=== PATIENT | female | born 1935 | race Caucasian/White ===

== ENCOUNTER 2018-03-27 19:05 | Inpatient (IN) | payer MEDICARE, MEDICAID ==
[~2018-03-27] VITALS: Ht 160 cm; Wt 62.1 kg
[~2018-03-27 19:05] MED LIST: CITA10TA8 PO; FOLI1TAB21 PO; HALO1TAB PO; LORA-447 PO; RISP0.2518 PO; RISP1TAB45 PO
--- NOTE | 2018-03-27 19:23 | ER.PDOC ---
General Chief Complaint: Requesting Medical Care Stated Complaint: MED CLEARANCE Time seen by MD: 19:18 Source: RN/MD Exam Limitations: clinical condition History of Present Illness Initial Comments Pt to be admitted to GP due to delusional activity, erratic behavior and aggressive toawrd others, non suicidal Timing/Duration: constant Severity: severe Associated Symptoms: Hostile, Confused Allergies: Coded Allergies: No Known Allergies (Unverified , 02/08/18) Home Meds Active Scripts Risperidone (RISPERDAL) 1 Mg Tablet, 1 MG PO BID for 30 Days, TABLET Prov:BRONWYN HARDY IV, MD 02/24/18 Lorazepam (ATIVAN) 0.5 Mg Tablet, 0.5 MG PO Q6HR PRN for AGITATION for 30 Days, TABLET Prov:BRONWYN HARDY IV, MD 02/24/18 Haloperidol (HALOPERIDOL) 1 Mg Tablet, 2 MG PO Q6H PRN for AGITATION for 30 Days , TABLET Prov:BRONWYN HARDY IV, MD 02/24/18 Folic Acid (FOLIC ACID) 1 Mg Tablet, 1 MG PO DAILY for 30 Days, #30 TABLET Prov:RIANA JEFFERY MD 02/20/18 Citalopram Hydrobromide (CELEXA) 10 Mg Tablet, 10 MG PO DAILY for 30 Days, #30 TABLET Prov:RIANA JEFFERY MD 02/20/18 Past Medical History Surgical History: cancer surgery, cholecystectomy Social History Drug Use: none Review of Systems Constitutional: no symptoms reported EENTM: no symptoms reported Respiratory: no symptoms reported Cardiovascular: no symptoms reported Gastrointestinal: no symptoms reported Genitourinary: no symptoms reported Musculoskeletal: no symptoms reported Skin: no symptoms reported Psychiatric/Neurological: see HPI Physical Exam General Appearance: No acute distress, Alert EENT: No nystagmus, PERRLA, EOM's intact, NML ENT inspection, Pharynx nml, NML gag reflex Neck: Non-Tender, Full Range of Motion, Supple, Normal Inspection Respiratory: chest non-tender, lungs clear, normal breath sounds, no respiratory distress, no accessory muscle use Cardiovascular: Normal Peripheral Pulses, Regular Rate, Rhythm, No Edema, No Gallop, No JVD, No Murmur Gastrointestinal: Normal Bowel Sounds, No Organomegaly, No Pulsatile Mass, Non Tender, Soft Extremities: Edema (3/6, bilateral pitting) Neurological/Psychiatric: podiatric technician II-XII NML as Tested, Disoriented x 3 Appearance/Memory/Insight: No Memory Impairment, Disheveled, Impaired Insight, Impaired Recent Memory, Impaired Remote Memory Behavior/Eye Contact/Speech: Refused to Answer, Threatening Eye Contact Thoughts/Hallucinations: No Apparent Hallucination Skin: Normal Color, Warm/Dry Results/Orders Results/Orders Laboratory Tests Test 03/27/18 19:22 03/27/18 19:30 White Blood Count 6.1 10^3/uL (4.5-11.0) Red Blood Count 4.12 10^6/uL (4.00-5.20) Hemoglobin 13.2 g/dL (12.0-15.0) Hematocrit 40.5 % (36.0-46.0) Mean Corpuscular Volume 98.3 fL (78-100) Mean Corpuscular Hemoglobin 32.0 pg (26-34) Mean Corpuscular Hemoglobin Concent 32.6 g/dL (33-37) Red Cell Distribution Width 14.0 % (11.5-14.5) Platelet Count 231 10^3/uL (150-400) Mean Platelet Volume 9.3 fL (7.8-11.0) Neutrophils (%) (Auto) 70.6 % (41.0-85.0) Lymphocytes (%) (Auto) 20.8 % (24.0-44.0) Monocytes (%) (Auto) 7.3 % (5.0-12.0) Neutrophils # (Auto) 4.3 10^3/uL (1.8-7.7) Lymphocytes # (Auto) 1.3 10^3/uL (1.0-4.8) Monocytes # (Auto) 0.5 10^3/uL (0.3-0.8) Absolute Immature Granulocyte (auto 0.01 10^3 u/L (0-2) Eosinophils % 0.8 % (0.0-5.0) Basophils % 0.3 % (0.0-0.2) Basophils # 0.0 10^3/uL (0.0-0.1) Eosinophil Count 0.1 10^3/uL (0.0-0.2) Prothrombin Time 10.0 SEC (9.8-11.9) Prothrombin Time INR (Non-Therap) 1.0 Activated Partial Thromboplast Time 23.1 SEC (24.67-30.72) Sodium Level 142 mmol/L (132-145) Potassium Level 3.4 mmol/L (3.6-5.2) Chloride Level 104.0 mmol/L (96-109) Carbon Dioxide Level 30.7 mmol/L (20.0-32) Anion Gap 10.7 Blood Urea Nitrogen 12 mg/dL (7-18) Creatinine 0.83 mg/dL (0.59-1.40) Estimated GFR () 79.4 (>/=60) BUN/Creatinine Ratio 14.0 Glucose Level 179 mg/dL (70-110) Calcium Level 8.5 mg/dL (8.4-10.5) Total Bilirubin 0.3 mg/dL (0.2-1.0) Aspartate Amino Transf (AST/SGOT) 16 U/L (0-35) Alanine Aminotransferase (ALT/SGPT) 24 U/L (12-78) Alkaline Phosphatase 109 U/L (50-136) Total Creatine Kinase 102 U/L (26-192) Creatine Kinase MB 0.7 ng/mL (0.5-3.6) Troponin I < 0.02 ng/mL (0.00-0.05) C-Reactive Protein 0.75 mg/dL (0.00-5.00) Pro-B-Type Natriuretic Peptide 228 pg/mL (0-450) Total Protein 7.2 g/dL (6.4-8.2) Albumin 3.3 g/dL (3.4-5.0) Globulin 3.9 Vitamin B12 Level 242 pg/mL (193-986) Folate 38.4 ng/mL (8.6-58.9) Thyroid Stimulating Hormone (TSH) 1.048 mIU/mL (0.358-3.740) Valproic Acid (Depakene) Level < 3 ug/mL (50-100) [place] Level < 0.20 mmol/L (0.6-1.2) Percent Immature Gran (Cell Imm) 0.20 % (0.00-0.50) Urine Collection Type VOID Urine Color STRAW (YELLOW) Urine Appearance CLEAR (CLEAR) Urine Bilirubin NEGATIVE MG/DL (NEGATIVE) Urine Ketones NEGATIVE (NEGATIVE) Urine Specific [place] 1.010 (1.005-1.035) Urine pH 6 (5.0-6.0) Urine Protein NEGATIVE (NEGATIVE) Urine Urobilinogen NORMAL (NEGATIVE) Urine Nitrate NEGATIVE (NEGATIVE) Urine Leukocyte Esterase 25 /uL TRACE (NEGATIVE) Urine Blood NEGATIVE (NEGATIVE) Urine RBC 0-2 RBC/HPF (NONE SEEN) Urine WBC 0-2 WBC/HPF (0-2) Urine Squamous Epithelial Cells FEW #/HPF (FEW) Urine Bacteria NONE SEEN (NONE SEEN) Urine Glucose NORMAL (NEGATIVE) Urine Opiates, Qualitative NEGATIVE ng/mL (CUT-OFF:300) Urine Methadone, Qualitative NEGATIVE ng/mL (CUT-OFF:300) Urine Amphetamine Qualitative NEGATIVE ng/mL (CUTOFF:1000) Urine Barbiturates, Qualitative NEGATIVE ng/mL (CUT-OFF:200) Urine Phencyclidine Screen NEGATIVE ng/mL (CUT-OFF:25) Urine MDMA (Ecstasy), Qualitative NEGATIVE ng/mL (CUT-OFF:300) Urine Benzodiazepines Screen NEGATIVE ng/mL (CUT-OFF:200) Urine Cocaine Qualitative NEGATIVE ng/mL (CUT-OFF:300) Ur Tetrahydrocannabinol (THC) Scrn NEGATIVE ng/mL (CUT-OFF:50) Departure Time of Disposition: 20:25 Disposition: 65 XFER TO PSYCH HOSP/UNIT Impression: Primary Impression: Delusional disorder Additional Impressions: Dementia Major depress dis, severe Condition: Stable Referrals: WILBER GRAVES (PCP) PRIMARY CARE PROVIDER Duration or Time Spent with Pa: COOKIE RAMSEY MD Mar 27, 2018 19:23
[2018-03-27 19:28] LABS: BASOPHIL % 0.3 % (0.0-0.2); EOSINOPHIL # 0.1 10^3/uL (0.0-0.2); EOSINOPHIL % 0.8 % (0.0-5.0); HEMOGLOBIN 13.2 g/dL (12.0-15.0); LYMPHOCYTES # 1.3 10^3/uL (1.0-4.8); LYMPHOCYTES % 20.8 % (24.0-44.0); MEAN CELL HGB CONCENTRATION 32.6 g/dL (33-37); MEAN CORP VOLUME 98.3 fL (78-100); MEAN PLATELET VOLUME 9.3 fL (7.8-11.0); MONOCYTES # 0.5 10^3/uL (0.3-0.8); MONOCYTES % 7.3 % (5.0-12.0); NEUTROPHIL # 4.3 10^3/uL (1.8-7.7); NEUTROPHILS % 70.6 % (41.0-85.0); WHITE BLOOD CELL 6.1 10^3/uL (4.5-11.0)
--- NOTE | 2018-03-27 19:29 | NUR ---
SUICIDAL PATIENT HAS VOICED SUICIDAL THOUGHTS TO THIS NURSE, PERSON THAT BROUGHT PATIENT STATES SHE HAS VOICED ALL THROUGHOUT THE DAY SHE DOESN'T WANT TO LIVE ANYMORE, PATIENT STATED "I WANT TO KILL MYSELF"
--- NOTE | 2018-03-27 19:31 | NUR ---
URINE COLLECTED AND TAKEN TO LAB
[2018-03-27 19:35] LABS: BILIRUBIN,URINE NEGATIVE (NEGATIVE); UROBILINOGEN,URINE NORMAL (NEGATIVE)
--- NOTE | 2018-03-27 19:38 | DIREP ---
PROCEDURE:CHEST 1 VIEW COMPARISON:[facility], CR, XRAY CHEST SINGLE VW, 02/08/2018, 08:53 PM. INDICATIONS:clearance FINDINGS: LUNGS/PLEURA:Mild interstitial thickening in both lung bases without focal consolidation. VASCULATURE:Normal. Unremarkable pulmonary vasculature. CARDIAC:Borderline enlarged cardiac silhouette. Limited by portable technique and patient rotation. MEDIASTINUM:Vascular calcifications. BONES:Osteopenia. OTHER:Negative. CONCLUSION:Mild interstitial thickening in both lung bases, differential includes pneumonia, edema, atelectasis or chronic change. Borderline cardiomegaly. Dictated by: Rudy Carvajal M.D. on 03/27/2018 at 07:36 PM
[2018-03-27 19:42] LABS: APPEARANCE,URINE CLEAR (CLEAR); UA COLOR STRAW (YELLOW)
[2018-03-27 20:24] LABS: ALANINE AMINOTRANSFERASE(ML) 24 U/L (12-78); ALKALINE PHOSPHATASE 109 U/L (50-136); ASPARTATE AMINO TRANSFERASE 16 U/L (0-35); CALCIUM 8.5 mg/dL (8.4-10.5); CARBON DIOXIDE 30.7 mmol/L (20.0-32); GLUCOSE 179 mg/dL (70-110)
[2018-03-27 20:27] VITALS: BP 129/69
[2018-03-27 21:00] VITALS: BP 132/67
--- NOTE | 2018-03-27 21:00 | NUR ---
Admit Patient arrived per wheelchair to [facility] at 2049 with Katherine MANRIQUE RN and [employer] operator. Patient alert but unable to tell RN name, , Place, or date. Pt rambling but unable to follow her conversation. Patient involuntary with court documents from [facility]. Dr Carter notified of patient arrival. Dr Michelle had called and is aware of pt arrival.
--- NOTE | 2018-03-27 23:26 | PCM.EKG ---
[facility] Test Date: 2018-03-27 Test Time: 19:44:27 Pat Name: GILBERT Mc Department: Room: Gender: F Linotype Operator: LOGAN : 1935 Requested By: COOKIE LE Order Number: [id number] Reading MD: Cookie Le Measurements Intervals [place] Rate: 80 P: 57 [place]: 144 QRS: -67 QRSD: 114 T: 53 QT: 410 QTc: 472 Interpretive Statements Normal sinus rhythm Left anterior fascicular block Abnormal ECG Compared to ECG 02/08/2018 21:00:57 Left ventricular hypertrophy no longer present Early repolarization no longer present Electronically Signed On 03-29-2018 8:07:03 CDT by Cookie Le Please click the below link to view image of tracing.
[2018-03-28] MEDS ORDERED: HALDOL PO PRN (02:00)
--- NOTE | 2018-03-28 03:57 | NUR ---
Nursing note Patient ambulatory to nurses desk unassisted. Patient was assisted back to her room to bathroom then assisted back in to bed. bed alarm placed. Patient has not displayed any behaviors. To observe.
[2018-03-28 07:41] VITALS: BP 110/55
[2018-03-28] MEDS ORDERED: CELEXA PO SCH (09:00)
[2018-03-28] MEDS: RISPERDAL PO SCH ×2 (10:15→20:43)
[2018-03-28] MEDS: FOLIC ACID PO SCH (10:15)
--- NOTE | 2018-03-28 12:03 | HPH ---
ADMIT DATE: 03/28/2018 REFERRING PHYSICIAN: Dr. Michelle from Psychiatry. REASON FOR CONSULTATION: Medical management of multiple medical problems. HISTORY OF PRESENT ILLNESS: The patient is an 82-year-old woman who was admitted to the Geropsych Unit for worsening depression. She has a past medical history significant for dementia and depression. She also has history of breast cancer. She was worked up in the Emergency Room and medically cleared for inpatient psychiatric care. Her only home medication other than psychiatric medication is folic acid. She is in a wheelchair. She does have some lower extremity trace edema. Her functional status is questionable. She denies any chest pain. No other acute changes. 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 PAST SURGICAL HISTORY: She has had left mastectomy and cholecystectomy. ALLERGIES: NO KNOWN DRUG ALLERGIES. HOME MEDICATIONS: Her reported list includes folic acid 1 mg daily, Celexa 10 mg daily, Haldol 2 mg as needed for agitation, lorazepam 0.5 mg as needed for agitation, Risperdal 1 mg b.i.d. SOCIAL HISTORY: Resident of a correction. No alcohol, tobacco or illicit drug use history known. FAMILY HISTORY: Negative for early coronary artery disease or diabetes. REVIEW OF SYSTEMS: CARDIAC: She denies chest pain or shortness of breath. PULMONARY: No cough, sputum production or pleuritic chest pain. GASTROINTESTINAL: No nausea, vomiting, diarrhea or constipation. All else negative in 10 point review of system except as in HPI. PHYSICAL EXAMINATION: INITIAL VITAL SIGNS: Upon arrival to the Emergency Room, height 160 cm, weight 63.5 kilograms, temperature 98.5, pulse 87, respiratory rate is 18, O2 saturation 96% on room air, blood pressure is 129/69. GENERAL: She is alert, in no acute distress at time of exam, flat affect. HEENT: Pupils equal, round, reactive to light. Sclerae are anicteric. Oropharynx is clear. Mucous membranes are moist. NECK: Supple, no lymphadenopathy. CARDIOVASCULAR: At time of exam was regular rate and rhythm with a faint systolic murmur at right upper sternal border. LUNGS: Clear bilaterally. No wheezing. ABDOMEN: Soft. Bowel sounds present, nontender to palpation. EXTREMITIES: No cyanosis, clubbing. She has trace lower extremity edema. NEUROLOGIC: She does have some very mild cogwheel rigidity in the upper extremities on exam and bradykinesia by report. LABORATORY DATA: CBC: White count 6.1, hemoglobin 13.2 and platelets 231. Differential: 70% neutrophils, 21% lymphocytes, 7% monocytes. Sodium 142, potassium 3.4, chloride 104, CO2 is 31, BUN 12, creatinine 0.8, glucose is 179, calcium is 8.5, total bilirubin 0.3, AST 16, ALT 24, alkaline phosphatase is 109, total CK is 102, CK-MB is 0.7, troponin I is less than 0.02, C-reactive protein 0.75, ProBNP of 228, total protein 7.2, albumin 3.3, B12 242. Folate is 38.4. TSH 1.048. UA, pH is 6.0, specific gravity is 1.010, all else is essentially negative. Drug screen is negative. IMAGING STUDIES: Chest x-ray performed in the Emergency Room reveals some mild chronic changes. ASSESSMENT AND PLAN: The patient is an 82-year-old woman here with probably some mild interstitial lung disease, congestive heart failure, diastolic dysfunction, probably early Parkinson's disease with depression and dementia. 1. We will continue folic acid. 2. We will follow clinically. She does have some trace edema, probably some early diastolic heart failure. She also has exam consistent with early Parkinson disease with cogwheel rigidity and bradykinesia, but at this point, does not appear to need any kind of movement disorder medications like Sinemet. Thank you for this consult. We will follow with you. Tenzin Carter MD DR: UBALDO/manjit JOB# [id number]
--- NOTE | 2018-03-28 12:27 | NUR ---
OT EVALUATION OT evaluation completed on paper by Marilia Samaniego Supervising OTR. Documentation copied from paper evaluation into computer per OTR request. Signed: 03/28/18 at 1231 by GUILLERMO Mcguire OT Addendum: 03/28/18 at 1232 by GUILLERMO Mcguire OT Amended: Links added.
--- NOTE | 2018-03-28 12:38 | NUR ---
OT POC POC completed by supervising SHAUNA Samaniego on paper. Information copied from paper into computer per S SHAUNA Samaniego request. Signed: 03/28/18 at 1239 by GUILLERMO Mcguire OT Addendum: 03/28/18 at 1239 by GUILLERMO Mcguire OT Amended: Links added.
--- NOTE | 2018-03-28 15:15 | NUR ---
GMAS SCORE 0: PT IS UNABLE TO COGNITIVELY ABLE TO PARTICIPATE IN EXAM AT THIS TIME.
--- NOTE | 2018-03-28 15:24 | NUR ---
MMSE SCORE 0. PT IS NOT ABLE TO COGNITIVELY PARTICIPATE IN EXAM. PT IS ONLY ORIENTED TO SELF. Addendum: 03/28/18 at 1524 by Krystle HOLCOMB CM Amended: Links added.
--- NOTE | 2018-03-28 15:50 | NUR ---
VSEE Pt was seen by Dr. Michelle via telemed. Received orders to increase scheduled Celexa, see EMAR.
[2018-03-28] MEDS: ATIVAN PO PRN (16:44)
--- NOTE | 2018-03-28 16:45 | NUR ---
BEHAVIOR NOTE: Patient is anxious, tearful and asking "what do I do". She is unable to be redirected. Ativan 0.5 mg po PRN given
--- NOTE | 2018-03-28 17:09 | NUR ---
PIRP P: Sexually inappropriate, confused I: q15 min monitoring, provide safe and supportive environment, give clear and simple instructions, redirect with verbalization, provide task-oriented activities, provide 1:1 to encourage expression of feelings, set clear and appropriate boundaries, provide positive feedback on appropriate behaviors, teach relaxation techniques, educate regarding involuntary admission R: Pt has had flat, withdrawn affect majority of shift, tearful @ times. Unable to answer assessment questions appropriately, exhibits word salad. When asked if depressed and anxious, reports "yes," unable to elaborate. When tearful, states, "I wanna go home." Pt requires assistance with ADLs and feedings. Unsteady, weak gait. Difficulty following simple commands. P: Pt was seen by Dr. Michelle, Celexa increased.
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
--- NOTE | 2018-03-28 17:18 | NUR ---
BIOPSYCHOSOCIAL: SS WAS UNABLE TO COMPLETE BIOPSYCHOSOCIAL DUE TO PT'S COGNITION. Addendum: 03/28/18 at 1719 by Krystle HOLCOMB CM Amended: Links added.
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
--- NOTE | 2018-03-29 05:36 | NUR ---
PIRP P Dementia with behavioral disturbance, Sexually inappropriate behavior I Sleep for 8 hours encouraged. Threatening and assaultive behavior to be discouraged. Medications to be given as ordered by . Monitor patient every 15 minutes for safety. Observe patient for inappropriate behaviors or statements. R Patient has slept well tonight and has only been up to bathroom to void. Patient has not displayed any threatening or assaultive behavior. Nor has patient made any inappropriate statements that could be understood. Patient has taken medications as ordered. Patient has been monitored every 15 minutes for her safety and for the safety of those around her. Patient has not displayed any inappropriate behaviors or statements. P Continue plan of care
[2018-03-29 08:58] VITALS: BP 110/66
[2018-03-29] MEDS: CELEXA PO SCH (09:02)
[2018-03-29] MEDS: RISPERDAL PO SCH ×2 (09:02→20:32)
[2018-03-29] MEDS: FOLIC ACID PO SCH (09:02)
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
--- NOTE | 2018-03-29 17:54 | NUR ---
PIRP: P: Altered thought process. I: Provide medications as ordered by physician. Encourage attendance and participation of all groups. Provide groups that require focus and concentration. Assist patient in differentiating between internal and external reality. R: Patient has taken all medications and has remained calm and cooperative/pleasant until approx 1800 she was restless wandering and anxious. Ativan 0.5 mg po PRN given. P: Continue current plan of care.
[2018-03-29] MEDS: ATIVAN PO PRN (17:57)
--- NOTE | 2018-03-29 17:57 | NUR ---
anxiety pt has become anxious and is exit seeking. unable to redirect. ativan administered per prn order
[2018-03-29 19:25] VITALS: BP 138/72
--- NOTE | 2018-03-30 02:07 | NUR ---
PIRP- P- ALTERED THOUGHT PROCESS,SEXUAL INAPPROPRIATE I-PROVIDE MEDICATION ORDERED,Q 15 MIN. MONITORING,PROVIDE SAFE AND SUPPORTIVE ENVIRONMENT. R-PT. WAS ORIENTED TO NAME NOT MONTH OR YEAR. WAS UNABLE TO RATE DEPRESSION AND ANXIETY. ATTENDED GROUP BUT DID NOT PARTICIPATE IN ACTIVITIES. ATE SNACKS. MEDICATION EDUCATION PROVIDED BUT PT. COULD NOT EXPRESS UNDERSTANDING OR RECALL AFTERWARD. TOOK MEDICATION ORDERED. RESTLESS AT TIMES. WAS ASSISTED WITH HS ADLS AND TO BED. PT. DID NOT EXHIBIT SEXUALLY INAPPROPRIATE BEHAVIORS TONIGHT. P-WILL CONTINUE WITH CURRENT TX. PLAN.
[2018-03-30 07:42] VITALS: BP 129/76
[2018-03-30] MEDS: FOLIC ACID PO SCH (09:42)
[2018-03-30] MEDS: RISPERDAL PO SCH ×2 (09:42→20:53)
[2018-03-30] MEDS: CELEXA PO SCH (09:42)
--- NOTE | 2018-03-30 18:19 | NUR ---
PIRP: P: DEMENTIA WITH BEHAVIORAL DISTURBANCE,SEXUALLY INAPPROPRIATE I: MONITOR Q 15 MINUTES FOR SAFETY, PROVIDE SAFE AND SUPPORTIVE ENVIRONMENT, GIVE MEDICATIONS ORDERED BY PHYSICIAN PROVIDE SAFE AND SUPPORTIVE ENVIRONMENT R: PT. IS CHECKED BY STAFF Q 15 MINUTES, PT. TAKES MEDICATIONS ORDERED BY PHYSICIAN. PT. HAS A SAFE AND SUPPORTIVE ENVIRONMENT. PT. IS ORIENTED X 1. KNOWS HER NAME, . PT. HAS BEEN CALM AND COOPERATIVE TODAY. PT. HAS NOT BEEN SEXUALLY INAPPROPRIATE. P: CONTINUE CURRENT TX PLAN
[2018-03-30 19:30] VITALS: BP 135/65
--- NOTE | 2018-03-31 06:12 | NUR ---
pirp P- ALTERED THOUGHT PROCESS AND SEXUAL INAPPROPRIATE I- Q 15 MIN. MONITORING,PROVIDE MEDICATION ORDERED,PROVIDE SAFE AND SUPPORTIVE ENVIRONMENT. R-PT. WAS ORIENTED TO NAME NOT MONTH OR YEAR. WAS UNABLE TO RATE DEPRESSION AND ANXIETY. TOOK MEDICATION ORDERED.WANDERED AT TIMES. EASILY REDIRECTED. PT. HAS RESTED IN BED WITH EYES CLOSED FOR ONE HOUR THIS SHIFT. ATTEMPTED TO GO INTO PEERS' ROOMS AT TIMES BUT WAS REDIRECTED. P- WILL CONTINUE WITH CURRENT TX. PLAN.
[2018-03-31 08:13] VITALS: BP 120/64
[2018-03-31] MEDS: RISPERDAL PO SCH ×2 (11:26→21:05)
[2018-03-31] MEDS: CELEXA PO SCH (11:26)
[2018-03-31] MEDS: FOLIC ACID PO SCH (11:26)
--- NOTE | 2018-03-31 12:40 | PRM.PN ---
Mood: UP AND DOWN, MOOD SWINGS, PACES A LOT Sleep: SLEPT 1 HOUR LAST NIGHT, SLEEPING POORLY Appetite: EATS 90-100% OF HER MEALS Suidical thoughts: NONE REPORTED Homicidal thoughts: NONE REPORTED Recent stressors: STRESS OF MENTAL ILLNESS, POOR MEMORY Family support: SOME FAMILY SUPPORT Aggressive Behavior: SEXUALLY INAPPROPRIATE BEHAVIOR, POOR PERSONAL SPACE BOUNDARIES Ability to Perform ADL'sc: NEEDS ASSISTANCE AND PROMPTING Psychotic sympstoms: DELUSIONAL THINKING, PARANOIA, ODD THINKING Manic Symptoms: MOOD SWINGS Living situation: LIVES AT [facility] Illicit Drug usec: NONE REPORTED Alcoholo use: NONE REPORTED Tobacco use: NONE REPORTED Anxity Symptoms: MODERATE ANXIETY LEVEL Anger/Irritablility: PROBLEMS WITH ANGER AND IRRITABILITY Muscle Strength & Tone: WNL Gait & Station: Ataxic Appearance: Well groomed/hygience, Casual attire, Normal weight, Appears age stated Attitude & Behaviour: Uncooperative, Poor eye contact, Psychomotor agitation Mood & Affect: Euthymic/appr/congruent, Iabile, Angry, Depressed Orientation: Disoriented to place, Disoriented to time, Disoriented to situation Attention/Concentration: Poor attention, Poor concentration Speech: Impaired Judgement/Insight: Poor judgement, Poor insight Thought Process: Loose, Tangential Language: Mosotho Thought content/Abnormal/Psych: Delusions Fund of Knowledge: Other Associations: JIMMY Memory (recent and remote): Recent memory repaired, Remote memory repaired Constitutional: Insomnia Neurological: None Psychiatric: Depressed, Anxious, Psychosis Media I: DELUSIONAL DISORDER; PSYCHOSIS; ANXIETY, DEPRESSION, DEMENTIA Media II: DEFERRED Media III: REFER TO PMH/MEDICAL CHART Media IV: STRESS OF MENTAL ILLNESS Media V: GAF=25 Assessment/Plan Assessment/Plan Assessment/Plan Vital Signs Date Time Temp Pulse Resp B/P (MAP) Pulse Ox O2 Delivery O2 Flow Rate FiO2 03/31/18 08:13 98.3 75 18 120/64 (82) 95 Room Air Allergies Coded Allergies No Known Allergies (Unverified02/08/18) I & O 02/09/18 01:59 Thru 03/31/18 11:27 Intake Total 4857 ml Balance 4857 ml Current Medications Medications (Trade) Dose Ordered Sig/Erinn Route PRN Reason Start Time Stop Time Status Last Admin Dose Admin Folic Acid (Folic Acid) 1 mg DAILY PO 03/28/18 09:00 04/27/18 08:59 03/31/18 11:26 Citalopram Hydrobromide (Celexa) 10 mg DAILY PO 03/28/18 09:00 03/28/18 16:26 DC 03/28/18 10:15 Haloperidol (Haldol) 2 mg Q6H PRN PO AGITATION 03/28/18 02:00 04/27/18 01:59 Lorazepam (Ativan) 0.5 mg Q6HR PRN PO AGITATION 03/28/18 02:00 04/27/18 01:59 03/29/18 17:57 Risperidone (Risperdal) 1 mg BID PO 03/28/18 09:00 04/27/18 08:59 03/31/18 11:26 Citalopram Hydrobromide (Celexa) 15 mg DAILY PO 03/29/18 09:00 04/28/18 08:59 03/31/18 11:26 THE PATIENT WAS SEEN BY DR. HARDY VIA TELEMEDICINE EQUIPMENT (VSEE) ALONG WITH THE TREATMENT TEAM. THE PATIENT IS A POOR HISTORIAN. SHE IS NOT ABLE TO ANSWER QUESTIONS VERY WELL. THE PATIENT HAS LOOSE ASSOCIATIONS. THE PATIENT HAS A DISORGANIZED THOUGHT PROCESS. THE PATIENT DENIES SI OR ARELY. THE PATIENT REPORTS HER MOOD IS "ALRIGHT." THE PATIENT HAS NOT SHOWN SEXUALLY INAPPROPRIATE BEHAVIOR SINCE BEING ADMITTED. THE PATIENT HAS NOT REQUIRED PRN MEDICATION THIS WEEKEND. SHE IS SLEEPING POORLY. SHE SLEPT ONE HOUR LAST NIGHT. THE PATIENT HAS BEEN EATING WELL PER STAFF. THE PATIENT PACES THE HALLWAYS. SHE HAS BEEN RE- DIRECTABLE PER STAFF. THE PATIENT HAS BEEN TAKING HER MEDICATIONS. SHE IS NOT HAVING ANY PHYSICAL PAIN TODAY. ASSESSMENT: DELUSIONAL DISORDER; PSYCHOSIS; MAJOR DEPRESSIVE DISORDER, GENERALIZED ANXIETY DISORDER, DEMENTIA WITH BEHAVIOR PROBLEMS PLAN: 1) CONTINUE BEHAVIORAL HEALTH MANAGEMENT AT THE [facility]. 2) START TRAZODONE 50MG PO QHS FOR INSOMNIA. CONTINUE OTHER MEDICATIONS AT CURRENT DOSES. STAFF AGREEABLE WITH THE PLAN. THE PATIENT DENIES SI OR HI. SAFETY PLANS WERE DISCUSS WITH THE PATIENT. SUPPORTIVE THERAPY GIVEN. Problems: (1) Dementia Status: Acute ICD Code: F03.90 - Unspecified dementia without behavioral disturbance SNOMED: 77485922 (2) Delusional disorder Status: Acute ICD Code: F22 - Delusional disorders SNOMED: 41958840 (3) Dementia with behavioral disturbance ICD Code: F03.91 - Unspecified dementia with behavioral disturbance SNOMED: 8723813095210 Patient History: Chronic obstructive pulmonary disease G8 SISTER Unknown G8 BROTHER BRONWYN HARDY IV, MD Mar 31, 2018 12:40
--- NOTE | 2018-03-31 15:41 | NUR ---
PIRP: P: ALEED THOUGHT PROCESS I: Q 15 MINUTE CHECKS, PROVIDE MEDS DRYanira ORDERED, PROVIDER SAFE AND SUPPORTIVE ENVIRONMENT. R: PT. HAS Q 15 MINUTE CHECKS BY STAFF. PT. TAKES MEDS ORDERED. PT. IS IN A SAFE AND SUPPORTIVE ENVIRONMENT. PT. SLEPT 1 HOUR LAST NIGHT. PT. WANDERED AROUND. PT. WAS SEEN BY DR. HARDY VIA VSEE. DR. HARDY ORDERED TRAZODONE 50 MG AT HS FOR SLEEP.PT. APPETITE GOOD. PT. HAS BEEN COOPERATIVE TO DAY AND EASILY REDIRECTED. P: CONTINUE CURRENT TX PLAN
[2018-03-31 19:50] VITALS: BP 140/83
[2018-03-31] MEDS: DESYREL PO SCH (21:05)
--- NOTE | 2018-04-01 02:18 | NUR ---
PIRP- P- ALTERED THOUGHT PROCESS AND SEXUAL INAPPROPRIATE BEHAVIORS I- PROVIDE MEDICATION ORDERED, Q 15 MIN. MONITORING, PROVIDE SAFE AND SUPPORTIVE ENVIRONMENT. R- PT. WAS ORIENTED TIMES ONE TO NAME. WANDERED AT TIMES. REQUIRED REDIRECTING. PT. WAS UNABLE TO RATE DEPRESSION AND ANXIETY. ATTENDED GROUP AND ATE SNACKS. NO SEXUAL INAPPROPRIATE BEHAVIORS NOTED THIS SHIFT. TOOK MEDICATION ORDERED. IN BED RESTING WITH EYES CLOSED AT THIS TIME. P- WILL CONTINUE WITH CURRENT TX. PLAN.
[2018-04-01 07:50] VITALS: BP 135/70
[2018-04-01] MEDS: RISPERDAL PO SCH ×2 (09:31→20:40)
[2018-04-01] MEDS: FOLIC ACID PO SCH (09:31)
[2018-04-01] MEDS: CELEXA PO SCH (09:31)
--- NOTE | 2018-04-01 17:01 | NUR ---
PIRP: P: ALTERED THOUGHT PROCESS I: Provide medications as ordered by physician. Encourage attendance and participation of all groups. Provide groups that require focus and concentration. Allow patient to voice feelings and concerns. Assist patient in differentiating between internal and external reality. R: Patient has taken all medications and has participated in all groups. She has been calm and cooperative and has not been combative. She has attempted to participate in groups. There has been NO sexually inappropriate behavior. P: Continue current plan of care.
[2018-04-01 19:25] VITALS: BP 122/67
[2018-04-01] MEDS: DESYREL PO SCH (20:40)
--- NOTE | 2018-04-02 05:06 | NUR ---
PIRP P Dementia with behaviors I Patient to remain medication compliant. Encourage sleep for 8 hours. Discourage threatening behavior if displayed. Monitor every 15 minutes for safety. Observe for unusual behavior and redirect patient. R Patient has remained medication compliant. Patient has slept for 6.5 hours so far this evening. Patient has not displayed any threatening or assaultive behaviors. Patient has been monitored every 15 minutes for safety. Patient has not displayed any unusual behavior and has been redirectable when needed. Patient has been cooperative with care. P Continue plan of care.
[2018-04-02 07:51] VITALS: BP 120/76
[2018-04-02] MEDS: CELEXA PO SCH (08:30)
[2018-04-02] MEDS: FOLIC ACID PO SCH (08:30)
[2018-04-02] MEDS: RISPERDAL PO SCH ×2 (08:30→20:49)
[2018-04-02 19:25] VITALS: BP 120/64
[2018-04-02] MEDS: DESYREL PO SCH (20:49)
--- NOTE | 2018-04-03 06:10 | NUR ---
PIRP P Dementia with behaviors. I Encourage medication compliance. Encourage 8 hours of sleep.Observe for negative behaviors. Provide safe environment R Patient has remained medication compliant. patient has slept 8 hours and has only got up once to come to desk. Patient was assisted to bathroom and then back to bed. Patient has not displayed any negative behaviors . Patient has been cooperative and redirected when needed. Patient has been in safe environment and has been observed every 15 minutes for safety. P Continue plan of care.
--- NOTE | 2018-04-03 09:18 | PRM.PN ---
Mood: UP AND DOWN, NO SEXUALLY INAPPROPRIATE BEHAVIOR Sleep: SLEEPING WELL AT NIGHT Appetite: NORMAL APPETITE Suidical thoughts: NONE REPORTED Homicidal thoughts: NONE REPORTED Recent stressors: STRESS OF MENTAL ILLNESS Family support: SOME FAMILY SUPPORT Aggressive Behavior: NONE REPORTED Ability to Perform ADL'sc: NEEDS ASSISTANCE AND PROMPTING Psychotic sympstoms: DELUSIONAL THINKING RELATED TO DEMENTIA Manic Symptoms: NONE REPORTED Living situation: LIVES AT [facility] Illicit Drug usec: NONE REPORTED Alcoholo use: NONE REPORTED Tobacco use: NONE REPORTED Anxity Symptoms: MODERATE ANXIETY LEVEL Anger/Irritablility: LIMITED ANGER AND IRRITABILITY Muscle Strength & Tone: WNL Gait & Station: Ataxic Appearance: Well groomed/hygience, Casual attire, Normal weight, Appears age stated Attitude & Behaviour: Cooperative/Pleasant, Good eye contact Mood & Affect: Euthymic/appr/congruent Orientation: Disoriented to place, Disoriented to time, Disoriented to situation Attention/Concentration: Poor attention, Poor concentration Speech: Impaired Judgement/Insight: Poor judgement, Poor insight Thought Process: Loose, Tangential, Circumferential Language: Taiwanese Thought content/Abnormal/Psych: Delusions Fund of Knowledge: Other Associations: JIMMY Memory (recent and remote): Recent memory repaired, Remote memory repaired Constitutional: None Neurological: None Psychiatric: Anxious, Psychosis [place] I: DELUSIONAL DISORDER, PSYCHOSIS, DEMENTIA, ANXIETY, DEPRESSION [place] II: DEFERRED [place] III: REFER TO PMH/MEDICAL CHART [place] IV: STRESS OF MENTAL ILLNESS [place] V: GAF=25 Assessment/Plan Assessment/Plan Assessment/Plan Vital Signs Date Time Temp Pulse Resp B/P (MAP) Pulse Ox O2 Delivery O2 Flow Rate FiO2 04/02/18 19:25 97.6 84 17 120/64 (82) 92 Room Air Allergies Coded Allergies No Known Allergies (Unverified02/08/18) I & O 02/09/18 01:59 Thru 04/03/18 08:21 Intake Total 7869 ml Balance 7869 ml THE PATIENT WAS SEEN BY DR. HARDY VIA TELEMEDICINE EQUIPMENT (VSEE) ALONG WITH THE TREATMENT TEAM. THE PATIENT'S VITAL SIGNS WERE: MJ=084/65, TEMP.=98.0, RESP. =18, PULSE=64, O2 SAT WAS 92% ON RA. THE PATIENT SLEPT 8.25 HOURS LAST NIGHT. THE PATIENT HAS BEEN EATING WELL. THE PATIENT HAS BEEN TAKING HIS MEDICATIONS. THE PATIENT IS NOT OVER-SEDATED FROM HER MEDICATIONS. THE PATIENT HAS NOT BEEN HAVING HALLUCINATIONS. THE PATIENT HAS DELUSIONAL THINKING THAT HAS IMPROVED. THE PATIENT IS A POOR HISTORIAN. THE PATIENT IS ABLE TO STATE HER NAME. THE PATIENT IS DISORIENTED TO PLACE, TIME, AND SITUATION. THE PATIENT HAS A DISORGANIZED THOUGHT PROCESS. THE PATIENT REPORTS HER MOOD IS "FINE." SHE DENIES FEELING DEPRESSED. THE PATIENT DENIES SI OR HI. THE PATIENT IS NOT HAVING ANY PHYSICAL PAIN. THE PATIENT HAS POOR HEARING. ASSESSMENT: DELUSIONAL DISORDER; PSYCHOSIS; DEPRESSION; ANXIETY; DEMENTIA WITH BEHAVIOR PROBLEMS PLAN: 1) CONTINUE BEHAVIORAL HEALTH MANAGEMENT AT THE [facility]. 2) CONTINUE CURRENT MEDICATIONS. THE STAFF WAS AGREEABLE WITH THE PLAN. SUPPORTIVE THERAPY GIVEN. 16 MINUTES WAS SPENT IN SUPPORTIVE THERAPY, INSIGHT ORIENTED THERAPY, MEDICATION EDUCATION, AND DISCHARGE PLANNING. Problems: (1) Dementia Status: Acute ICD Code: F03.90 - Unspecified dementia without behavioral disturbance SNOMED: 60745072 (2) Delusional disorder Status: Acute ICD Code: F22 - Delusional disorders SNOMED: 41799023 (3) Dementia with behavioral disturbance Status: Acute ICD Code: F03.91 - Unspecified dementia with behavioral disturbance SNOMED: [id number] Patient History: Chronic obstructive pulmonary disease G8 SISTER Unknown G8 BROTHER BRONWYN HARDY IV, MD Apr 03, 2018 09:18
[2018-04-03] MEDS ORDERED: CITA10TA8 PO (09:26)
[2018-04-03] MEDS ORDERED: TRAZ50TA18 PO (09:26)
[2018-04-03] MEDS: RISPERDAL PO SCH ×2 (09:39→20:36)
[2018-04-03] MEDS: FOLIC ACID PO SCH (09:39)
[2018-04-03] MEDS: CELEXA PO SCH (09:39)
[2018-04-03 10:05] VITALS: BP 125/65
--- NOTE | 2018-04-03 10:37 | NUR ---
Tx team Pt was seen by Dr. Mensah and tx team. Plans for pt to discharge by tomorrow, 04/04/18, if accepted into locked facility.
--- NOTE | 2018-04-03 11:37 | NUR ---
DISCHARGE PLANNING: SS VISITED WITH PT'S SON REGARDING DISCHARGE PLANNING. PT'S SON GEMMA DOES NOT WANT PT DISCHARGING BACK TO [facility]. PT'S SON DOES NOT FEEL LIKE IT WAS A GOOD FIT FOR HER. PT'S SON ASKED ABOUT LOCKED UNITS CLOSE AROUND THE AREA. SS PROVIDED PT WITH ALL THE UNITS, AND PT'S SON STATED HE WOULD VISIT WITH HIS FAMILY AND THEY WOULD HAVE A FACILITY PICKED BY THE END OF THE DAY. SS TO CONTINUE TO FOLLOW.
--- NOTE | 2018-04-03 15:40 | NUR ---
[facility]: PT'S GRANDDAUGHTER CALLED AND LET THIS WORKER KNOW THEY HAD CHOSEN [facility]. SS REACHED OUT TO USAMA WITH [facility] WHOM STATED THEY WOULD SEND SOMEONE OUT TO EVALUATE PT AND THEY WOULD LET US KNOW. SS LET USAMA KNOW GOAL WAS TO DISCHARGE SOON PLACEMENT WAS SECURED. NO FURTHER NEEDS NOTED OR IDENTIFIED AT THIS TIME. [facility] TO COME OUT AND EVALUATE PT TO SEE IF SHE WOULD BE AN APPROPRIATE CANDIDATE FOR [facility].
[2018-04-03 19:30] VITALS: BP 114/60
[2018-04-03] MEDS: DESYREL PO SCH (20:36)
--- NOTE | 2018-04-04 05:19 | NUR ---
PIRP P Dementia with behavioral disturbance I Patient to remain medication compliant. Encourage patient to sleep 8 hours. Observe for threatening behavior. Monitor patient every 15 minutes for safety. R Patient has remained medication compliant. Patient has slept well this evening. Patient has not displayed any negative behaviors. Patient has been cooperative and able to redirect. Patient has been observed every 15 minutes. P continue plan of care.
[2018-04-04 08:37] VITALS: BP 115/69
[2018-04-04] MEDS: FOLIC ACID PO SCH (09:42)
[2018-04-04] MEDS: RISPERDAL PO SCH ×2 (09:42→20:26)
[2018-04-04] MEDS: CELEXA PO SCH (09:43)
--- NOTE | 2018-04-04 11:15 | PRM.PN ---
Mood: STABLE, DENIES FEELING DEPRESSED Sleep: SLEEPING WELL AT NIGHT Appetite: NORMAL APPETITE Suidical thoughts: NONE REPORTED Homicidal thoughts: NONE REPORTED Recent stressors: STRESS OF MENTAL ILLNESS Family support: YES Aggressive Behavior: NONE REPORTED Ability to Perform ADL'sc: NEEDS ASSISTANCE Psychotic sympstoms: DELUSIONAL THINKING DUE TO SEVERE DEMENTIA Manic Symptoms: NONE REPORTED Living situation: WAS LIVING AT [facility], GOING TO [facility] Illicit Drug usec: NONE REPORTED Alcoholo use: NONE REPORTED Tobacco use: NONE REPORTED Anxity Symptoms: MILD ANXIETY LEVEL Anger/Irritablility: LIMITED ANGER AND IRRITABILITY Muscle Strength & Tone: WNL Gait & Station: Ataxic Appearance: Well groomed/hygience, Casual attire, Normal weight, Appears age stated Attitude & Behaviour: Cooperative/Pleasant, Poor eye contact Mood & Affect: Euthymic/appr/congruent Orientation: Disoriented to place, Disoriented to time, Disoriented to situation Attention/Concentration: Poor attention, Poor concentration Speech: Impaired Judgement/Insight: Poor judgement, Poor insight Thought Process: Loose, Tangential, Circumferential Language: German Thought content/Abnormal/Psych: Delusions Fund of Knowledge: Other Associations: JIMMY Memory (recent and remote): Recent memory repaired, Remote memory repaired Constitutional: None Neurological: None Psychiatric: None [place] I: DELUSIONAL DISORDER, PSYCHOSIS, DEPRESSION, ANXIETY, DEMENTIA [place] II: DEFERRED [place] III: REFER TO PMH/MEDICAL CHART [place] IV: STRESS OF MENTAL ILLNESS [place] V: GAF=25 TO 30 Assessment/Plan Assessment/Plan Assessment/Plan Current Medications Medications (Trade) Dose Ordered Sig/Erinn Route PRN Reason Start Time Stop Time Status Last Admin Dose Admin Folic Acid (Folic Acid) 1 mg DAILY PO 03/28/18 09:00 04/27/18 08:59 04/04/18 09:42 Citalopram Hydrobromide (Celexa) 10 mg DAILY PO 03/28/18 09:00 03/28/18 16:26 DC 03/28/18 10:15 Haloperidol (Haldol) 2 mg Q6H PRN PO AGITATION 03/28/18 02:00 04/27/18 01:59 Lorazepam (Ativan) 0.5 mg Q6HR PRN PO AGITATION 03/28/18 02:00 04/27/18 01:59 03/29/18 17:57 Risperidone (Risperdal) 1 mg BID PO 03/28/18 09:00 04/27/18 08:59 04/04/18 09:42 Citalopram Hydrobromide (Celexa) 15 mg DAILY PO 03/29/18 09:00 04/28/18 08:59 04/04/18 09:43 Trazodone HCl (Desyrel) 50 mg HS PO 03/31/18 21:00 04/30/18 20:59 04/03/18 20:36 THE PATIENT WAS SEEN BY DR. HARDY VIA TELEMEDICINE EQUIPMENT (VSEE) ALONG WITH THE TREATMENT TEAM. THE PATIENT'S VITAL SIGNS WERE: TEMP.=97.9, WY=540/69, PULSE =66, O2 SAT WAS 94% ON RA, RESP.=14. THE PATIENT SLEPT 8.5 HOURS LAST NIGHT. THE PATIENT HAS A NORMAL APPETITE. THE PATIENT HAS NOT BEEN A BEHAVIOR PROBLEM OVER THE PAST FIVE DAYS. THE PATIENT HAS BEEN TAKING HER MEDICATIONS. THE PATIENT HAS NOT SHOWN AGGRESSIVE OR SEXUALLY INAPPROPRIATE BEHAVIOR. THE PATIENT IS NOT HAVING AUDITORY OR VISUAL HALLUCINATIONS. THE PATIENT IS TOLERATING HER MEDICATIONS WELL. THE PATIENT NEEDS HELP WITH HER WALKING. SHE WOULD BENEFIT FORM [facility] CARE TO IMPROVE HER WALKING. THE PATIENT IS NOT HAVING MANIC SYMPTOMS. THE PATIENT DENIES SI OR HI. THE PATIENT WAS LIVING AT [facility]. ASSESSMENT: DELUSIONAL DISORDER; GENERALIZED ANXIETY DISORDER; DEPRESSION; DEMENTIA WITH BEHAVIOR PROBLEMS PLAN: 1) DISCHARGE FROM THE BEHAVIORAL HEALTH UNIT TODAY. DISCHARGE TO [facility] FOR SKILLED CARE. 2) CONTINUE CURRENT MEDICATIONS. STAFF AGREEABLE WITH THE PLAN. SUPPORTIVE THERAPY GIVEN. THE PATIENT DENIES SI OR HI. SAFETY PLANS WERE DISCUSSED. Problems: (1) Dementia Status: Acute ICD Code: F03.90 - Unspecified dementia without behavioral disturbance SNOMED: [id number] (2) Delusional disorder Status: Acute ICD Code: F22 - Delusional disorders SNOMED: 37826275 Patient History: Chronic obstructive pulmonary disease G8 SISTER Unknown G8 BROTHER BRONWYN HARDY IV, MD Apr 04, 2018 11:15
--- NOTE | 2018-04-04 19:20 | NUR ---
PIRP P: Confusion I: q15 min monitoring, redirect with verbalization, give clear and simple instructions, assess for delusional thoughts, re-orient to surroundings, provide task-oriented activities R: Pt has had pleasant, cooperative affect throughout shift. Unable to answer questions appropriately d/t cognition, able to follow simple directions. Takes medications as ordered, participates in group activities with prompting and redirection. Has not exhibited threatening, combative, or sexually inappropriate behaviors. P: Plans for pt to [facility] to [facility] once accepted.
[2018-04-04 19:30] VITALS: BP 121/64
[2018-04-04] MEDS: DESYREL PO SCH (20:26)
--- NOTE | 2018-04-05 04:58 | NUR ---
PIRP P Dementia with behaviors I Encourage 8 hours of sleep. Patient to remain medication compliance. Decrease threatening behavior. R Patient has had a restful night and has slept well. Patient has been medication compliant. Patient has not displayed any threatening or assaultive behavior this evening. patient cooperative with care. P Continue plan of care.
[2018-04-05] MEDS: RISPERDAL PO SCH ×2 (08:56→20:30)
[2018-04-05] MEDS: FOLIC ACID PO SCH (08:56)
[2018-04-05] MEDS: CELEXA PO SCH (08:56)
[2018-04-05 09:34] VITALS: BP 122/75
--- NOTE | 2018-04-05 18:26 | NUR ---
PIRP P: Confusion, word salad I: Q15 min monitoring, monitor for changes in usual behavior, give clear and simple instructions, provide task-oriented activities, provide safe and supportive environment, redirect with verbalization, assist with ADLs, re-orient to surroundings R: Pt has had pleasant, bright affect throughout shift. Unable to answer assessment questions appropriately, exhibits word salad. Able to follow simple commands, cooperative with aviation medicine specialist. Has not exhibited any sexually inappropriate behaviors, combative or threatening behaviors. P: Plans for pt to [facility] to [facility] as soon as she is accepted.
[2018-04-05 19:05] VITALS: BP 134/68
[2018-04-05] MEDS: DESYREL PO SCH (20:30)
--- NOTE | 2018-04-06 02:32 | NUR ---
PIRP- P- ALTERED THOUGHT PROCESS P- PROVIDE MEDICATION ORDERED. Q 15 MIN. MONITORING,PROVIDE SAFE AND SUPPORTIVE ENVIRONMENT. PROVIDE 1:1 INTERVENTION ALLOWING PT. TO EXPRESS THOUGHTS AND FEELINGS. R- PT. ORIENTED TO NAME NOT MONTH OR YEAR. QUIET AND DID NOT INITIATE INTERACTION. ATTENDED GROUP,DID NOT PARTICIPATE IN GROUP ACTIVITIES AND ATE SNACKS. MEDICATION TEACHING PROVIDED BUT PT. DID NOT EXPRESS UNDERSTANDING. STANDBY ASSIST WAS PROVIDED WHEN PT. WAS AMBULATING. P- WILL CONTINUE WITH CURRENT TX. PLAN.
[2018-04-06] MEDS: CELEXA PO SCH (08:25)
[2018-04-06] MEDS: RISPERDAL PO SCH ×2 (08:25→20:23)
[2018-04-06] MEDS: FOLIC ACID PO SCH (08:25)
[2018-04-06 10:04] VITALS: BP 95/50
[2018-04-06 10:46] VITALS: BP 110/65
--- NOTE | 2018-04-06 16:07 | NUR ---
PIRP: P: ALTERED THOUGHT PROCESS I: Provide medications as ordered. Encourage attendance and participation of all groups. Provide groups that require focus and concentration. Allow patient to voice feelings and concerns. Assist patient in differentiating between internal and external reality. R: Patient has taken all medications but can not effectively participate in groups. She is not always able to make needs known d/t word salad, rambling, improper word choice. She has been calm and cooperative and pleasant. P: Continue current plan of care.
--- NOTE | 2018-04-06 19:00 | NUR ---
BACK DATED DOCUMENTATION: On 04/07/18 At shift Patient was sitting at a table in the day room when another patient became agitated over a drink. Staff was attempting to retrieve cup of coke from the other patient when she squeezed cup causing it to spill on the floor. I was not aware of any coke getting on the patient and I was not aware of any physical physical contact between the two female patients. Later I was given a statement from Iris Smith LVN and Tsering Steward LVN. stating that a small amount of coke had splashed on her sock and pants causing her to become agitated and swing at the other female patient, but not making contact. There was NO slapping, punching or scratching. The other female patient swung back at patient and if made contact it was with a fingertip. The two patients were and no injuries were noted. Addendum: 04/07/18 at 1252 by Farzana Bernard RN - KENIA CHISHOLM Statement from Iris Smith LVN and Tsering Steward LVN placed in chart.
[2018-04-06 19:15] VITALS: BP 114/66
[2018-04-06] MEDS: DESYREL PO SCH (20:22)
--- NOTE | 2018-04-07 05:09 | NUR ---
PIRP- P-ALTERED THOUGHT PROCESS I-PROVIDE MEDICATION ORDERED,Q 15 MIN. MONITORING,PROVIDE SAFE SUPPORTIVE ENVIRONMENT. R-PT. ORIENTED TO NAME NOT MONTH OR YEAR. TOOK MEDS ORDERED. QUIET . ATTENDED GROUP BUT DID NOT PARTICIPATE. UNABLE TO CONVERSE DUE TO WORD SALAD. PT. HAS RESTED IN BED WITH EYES CLOSED FOR 5 HOURS OF THIS TIME. P- WILL CONTINUE WITH CURRENT TX. PLAN.
[2018-04-07 09:15] VITALS: BP 126/67
[2018-04-07] MEDS: FOLIC ACID PO SCH (09:27)
[2018-04-07] MEDS: CELEXA PO SCH (09:27)
[2018-04-07] MEDS: RISPERDAL PO SCH ×2 (09:27→20:17)
--- NOTE | 2018-04-07 10:13 | PRM.PN ---
Mood: MOOD HAS BEEN STABLE THIS WEEKEND, DENIES FEELING DEPRESSED Sleep: SLEEPING OK AT NIGHT Appetite: NORMAL APPETITE PER STAFF Suidical thoughts: NONE REPORTED Homicidal thoughts: NONE REPORTED Recent stressors: STRESS OF MENTAL ILLNESS Family support: SOME FAMILY SUPPORT Aggressive Behavior: NONE REPORTED Ability to Perform ADL'sc: NEEDS ASSISTANCE Psychotic sympstoms: DELUSIONAL THINKING THAT HAS IMPROVED Manic Symptoms: NONE REPORTED Living situation: WAS LIVING AT [facility], GOING TO [facility] Illicit Drug usec: NONE REPORTED Alcoholo use: NONE REPORTED Tobacco use: NONE REPORTED Anxity Symptoms: MODERATE ANXIETY LEVEL Anger/Irritablility: LIMITED ANGER AND IRRITABILITY Muscle Strength & Tone: WNL Gait & Station: Ataxic Appearance: Well groomed/hygience, Casual attire, Normal weight, Appears age stated Attitude & Behaviour: Cooperative/Pleasant, Poor eye contact Mood & Affect: Euthymic/appr/congruent, Iabile Orientation: Disoriented to place, Disoriented to time, Disoriented to situation Attention/Concentration: Poor attention, Poor concentration Speech: Impaired Judgement/Insight: Poor judgement, Poor insight Thought Process: Loose, Tangential, Circumferential Language: Citizen Of [place] Thought content/Abnormal/Psych: Delusions Fund of Knowledge: Other Associations: JIMMY Memory (recent and remote): Recent memory repaired, Remote memory repaired Constitutional: None Neurological: None Psychiatric: Depressed, Anxious, Psychosis [place] I: DELUSIONAL DISORDER; PSYCHOSIS; DEPRESSION; DEMENTIA; ANXIETY [place] II: DEFERRED [place] III: REFER TO PMH/MEDICAL CHART [place] IV: STRESS OF MENTAL ILLNESS [place] V: GAF=25 Assessment/Plan Assessment/Plan Assessment/Plan Vital Signs Date Time Temp Pulse Resp B/P (MAP) Pulse Ox O2 Delivery O2 Flow Rate FiO2 04/06/18 19:15 98.5 74 18 114/66 (82) Room Air 04/06/18 10:04 95 Allergies Coded Allergies No Known Allergies (Unverified02/08/18) I & O 02/09/18 01:59 Thru 04/07/18 06:38 Intake Total 83847 ml Balance 15155 ml THE PATIENT WAS SEEN BY DR. HARDY VIA TELEMEDICINE EQUIPMENT (VSEE) ALONG WITH THE TREATMENT TEAM. THE PATIENT'S VITAL SIGNS WERE: VP=574/67, PULSE=77, RESP.= 18, TEMP.=97.4, O2 SAT WAS 92% ON RA, THE PATIENT SLEPT 6.25 HOURS LAST NIGHT. THE PATIENT HAS A NORMAL APPETITE. SHE ATE 50% OF HER BREAKFAST THIS MORNING. THE PATIENT HAS DELUSIONAL THINKING THAT HAS IMPROVED WITH MEDICATIONS. SHE HAS NOT SHOWN COMBATIVE OR SEXUALLY INAPPROPRIATE BEHAVIOR. THE PATIENT IS NOT HAVING AUDITORY OR VISUAL HALLUCINATIONS. THE PATIENT STRUGGLES WITH CONFUSION. SHE IS DISORIENTED TO PLACE, TIME, AND SITUATION. THE PATIENT HAS A STABLE MOOD. THE PATIENT DENIES SI OR HI. THE PATIENT VOICED NO CONCERNS TODAY. ASSESSMENT: DELUSIONAL DISORDER; PSYCHOSIS; GENERALIZED ANXIETY DISORDER; DEMENTIA WITH BEHAVIOR PROBLEMS; PLAN: 1) CONTINUE BEHAVIORAL HEALTH MANAGEMENT AT THE [facility]. 2) CONTINUE CURRENT MEDICATIONS. STAFF AGREEABLE WITH THE PLAN. THE PATIENT HAS BEEN COMPLIANT WITH HER MEDICATIONS. SUPPORTIVE THERAPY GIVEN. PLAN TO DISCHARGE TOMORROW TO [facility]. THE PATIENT DENIES SI OR HI. SAFETY PLANS WERE DISCUSSED. Problems: (1) Dementia Status: Acute ICD Code: F03.90 - Unspecified dementia without behavioral disturbance SNOMED: 70479929 (2) Delusional disorder Status: Acute ICD Code: F22 - Delusional disorders SNOMED: 74405433 Patient History: Chronic obstructive pulmonary disease G8 SISTER Unknown G8 BROTHER BRONWYN HARDY IV, MD Apr 07, 2018 10:13
--- NOTE | 2018-04-07 17:13 | NUR ---
PIRP: P: ALTERED THOUGHT PROCESS I: Provide medications as ordered by physician. Encourage attendance and participation of all groups. Provide groups that require focus and concentration. Assist patient in differentiating between internal and external reality. R: Patient has taken all medications and has participated in groups. She has been calm and cooperative. She is unable to make needs known d/t word salad and has NOT been sexually inappropriate. P: Continue current plan of care and discharge patient to [facility] tomorrow 04/08/18
[2018-04-07 19:55] VITALS: BP 126/76
[2018-04-07] MEDS: DESYREL PO SCH (20:18)
--- NOTE | 2018-04-08 04:51 | NUR ---
PIRP: P - DEMENTIA WITH BEHAVIORAL DISTURBANCES I - Q15 MINUTE MONITORING, PROVIDE SAFE AND SUPPORTIVE ENVIRONMENT, ADMINISTER MEDICATION ORDERED, GIVE CLEAR AND SIMPLE INSTRUCTIONS WITH REPETITION AND DEMONSTRATION. R - PT IS ALERT AND ORIENTED X 1. PT HAS A FLAT AFFECT. PT IS UNABLE TO ANSWER QUESTIONS APPROPRIATELY. PT EXHIBITING WORD-SALAD AND RAMBLING BEHAVIOR. PT RE-DIRECTED AND RE-ORIENTED SEVERAL TIMES. PT PARTICIPATED IN GROUPS AFTER SEVERAL PROMPTS AND DEMONSTRATION ON GROUP ACTIVITY. PT TOOK MEDS ORDERED. PT ATE SEVERAL SNACKS DURING THE EVENING - PUDDING, APPLE SAUCE, COOKIE AND 2 CUPS OF SODA. PT ATTEMPTED TO TAKE OTHER RESIDENT'S SODA. P - WILL CONTINUE WITH CURRENT TREATMENT PLAN.
[2018-04-08] MEDS: RISPERDAL PO SCH (08:39)
[2018-04-08] MEDS: FOLIC ACID PO SCH (08:39)
[2018-04-08 08:40] VITALS: BP 119/72
[2018-04-08] MEDS: CELEXA PO SCH (08:40)
--- NOTE | 2018-04-08 10:41 | NUR ---
DISCHARGE: SS NOTIFIED PT'S SON THAT PT WOULD BE DISCHARGING TO [facility] AT AROUND 1330. PT'S SON STATED "THANK YOU I WILL LET ALL THE NIECES AND OTHER FAMILY MEMBERS KNOW". NO FURTHER SS NEEDS NOTED AT THIS TIME. SS TO CONTINUE TO FOLLOW AND MONITOR DISCHARGE PLANNING NEEDS.
--- NOTE | 2018-04-08 13:20 | NUR ---
REPORT: Report given to Radha Godoy LVN @ [facility].
--- NOTE | 2018-04-08 13:20 | NUR ---
DISCHARGE NOTE: [facility] Shelter worker with her. Patient escorted off unit via wheelchair and transported to retirement.
[2018-04-08 14:40] VITALS: BP 119/72
--- NOTE | 2018-04-09 02:42 | DSH ---
DATE OF DISCHARGE: 04/08/2018 HOSPITAL COURSE: The patient is an 82-year-old female that came into the facility from [facility] with aggressive behavior and sexually inappropriate behavior. She was stabilized on the following psychotropic medications: Celexa 15 mg p.o. daily, Risperdal 1 mg p.o. b.i.d., trazodone 50 mg p.o. at bedtime. She was tolerating the medications fine. She was not having any side effects from the medications. She does struggle with severe confusion. She was oriented to person only. She was disoriented to place, time, and situation. She showed improvement in her delusional and psychotic symptoms. She was not a threat to harming herself or others when she was discharged. She was sleeping and eating well. She was compliant with her medications. She was able to be redirected easily by staff. She was stable to go to a detention. She was accepted by [facility]. She is going to be on a skilled care to help with her walking as her walking has decreased and could be improved with physical therapy. DISCHARGE DIAGNOSES: Delusional disorder; generalized anxiety disorder; depression; insomnia; dementia with behavior disturbance. DISCHARGE PLAN: 1. The patient is being discharged to the [facility] for skilled care. She will be followed up with by a psychiatrist at that facility. 2. The patient will continue the above psychotropic medications at current doses. She is not currently having any side effects from medications. 3. She will see the general medical doctor for general medical health issues at the detention. Clemencia Mensah IV MD DR: /manjit JOB# [id number]
== END 2018-04-08 13:50 | DRG 885 ==
LOC: ER 19:05 → EEVIPCON 20:29 → GP 20:29
PROVIDERS: ADMIT Psychiatry & Neurology Psychiatry; ATTEND Psychiatry & Neurology Psychiatry
DX: F22 Delusional disorders (principal); F02.81 Dementia in other diseases classified elsewhere, unspecified severity, with behavioral disturbance; R45.851 Suicidal ideations; G30.9 Alzheimer's disease, unspecified; F41.1 Generalized anxiety disorder; G47.00 Insomnia, unspecified; Z90.12 Acquired absence of left breast and nipple; Z90.49 Acquired absence of other specified parts of digestive tract; Z79.899 Other long term (current) drug therapy; Z85.3 Personal history of malignant neoplasm of breast; Z82.5 Family history of asthma and other chronic lower respiratory diseases
CPT/HCPCS: 36415; 71045; 80053; 80061; 80164; 80178; 80307; 81000; 82550; 82553; 82607; 82746; 83036; 83880; 84443; 84484; 85025; 85610; 85730; 86140; 93005; 97150; 97162; 97165; 99285; 97116-GP; G8978-CJ; G8979-CI

== ENCOUNTER → 2018-11-21 | Outpatient (CLI) | payer MEDICARE, MEDICAID ==
[~2018-11-21] MED LIST changes: +TRAZ-124 PO
[2018-11-21 13:02] LABS: BASOPHIL % 0.3 % (0.0-0.2); EOSINOPHIL % 0.7 % (0.0-5.0); LYMPHOCYTES # 1.8 10^3/uL (1.0-4.8); MEAN CELL HGB 32.3 pg (26-34); MEAN CELL HGB CONCENTRATION 33.7 g/dL (33-37); MEAN CORP VOLUME 95.6 fL (78-100); MEAN PLATELET VOLUME 10.4 fL (7.8-11.0); MONOCYTES # 0.5 10^3/uL (0.3-0.8); MONOCYTES % 8.6 % (5.0-12.0); NEUTROPHIL # 3.6 10^3/uL (1.8-7.7); NEUTROPHILS % 60.2 % (41.0-85.0)
[2018-11-21 13:21] LABS: CALCIUM 8.8 mg/dL (8.4-10.5); CARBON DIOXIDE 26.5 mmol/L (20.0-32)
== END | disposition home or self-care (01) ==
LOC: LAB 12:43
PROVIDERS: ATTEND Family Medicine
DX: G30.1 Alzheimer's disease with late onset (principal); F32.3 Major depressive disorder, single episode, severe with psychotic features; M19.90 Unspecified osteoarthritis, unspecified site; F41.9 Anxiety disorder, unspecified; C50.919 Malignant neoplasm of unspecified site of unspecified female breast; I50.30 Unspecified diastolic (congestive) heart failure
CPT/HCPCS: 80053; 80061; 83036; 85025

== ENCOUNTER → 2019-08-06 | Outpatient (CLI) | payer MEDICARE, MEDICAID ==
[~2019-08-06] MED LIST changes: -TRAZ-124 PO; +TRAZ-163 PO
[2019-08-06 23:13] LABS: BASOPHIL % 0.4 % (0.0-0.2); BILIRUBIN,URINE NEGATIVE (NEGATIVE); EOSINOPHIL # 0.1 10^3/uL (0.0-0.2); EOSINOPHIL % 1.1 % (0.0-5.0); LYMPHOCYTES % 21.2 % (24.0-44.0); MEAN CELL HGB 32.4 pg (26-34); MEAN CELL HGB CONCENTRATION 32.6 g/dL (33-37); MEAN CORP VOLUME 99.5 fL (78-100); MEAN PLATELET VOLUME 10.6 fL (7.8-11.0); MONOCYTES # 0.3 10^3/uL (0.3-0.8); MONOCYTES % 6.9 % (5.0-12.0); NEUTROPHIL # 3.3 10^3/uL (1.8-7.7); NEUTROPHILS % 70.4 % (41.0-85.0); RED CELL DISTRIBUTION WIDTH 14.3 % (11.5-14.5); UROBILINOGEN,URINE NORMAL (NEGATIVE); WHITE BLOOD CELL 4.6 10^3/uL (4.5-11.0)
[2019-08-06 23:21] LABS: APPEARANCE,URINE SLIGHTLY CLOUDY (CLEAR); CALCIUM 8.2 mg/dL (8.4-10.5); CARBON DIOXIDE 26.5 mmol/L (20.0-32); UA COLOR YELLOW (YELLOW)
== END | disposition home or self-care (01) ==
LOC: NPLAB 23:00
PROVIDERS: ATTEND Family Medicine
DX: N39.0 Urinary tract infection, site not specified (principal); M62.81 Muscle weakness (generalized); R35.8 Other polyuria; R55 Syncope and collapse
CPT/HCPCS: 36415; 80053; 81000; 85025; 87086

== ENCOUNTER 2020-05-15 17:46 | Inpatient (IN) | payer MEDICARE, MEDICAID ==
[~2020-05-15] VITALS: Ht 160 cm; Wt 55.8 kg
[~2020-05-15 17:46] MED LIST changes: +MORPHINE SULFATE IV STA; +ZOFRAN IV STA
[2020-05-15 17:49] VITALS: BP 131/54
[2020-05-15 17:50] VITALS: BP 131/54
--- NOTE | 2020-05-15 17:50 | NUR ---
ARRIVAL PT ARRIVEED VIA EMS FROM [facility]. PT FELL LAST NIGHT BUT WAS ABLE TO GET UP. PT C/O INCREASED PAIN THROUGHOUT THE DAY. XRAY OBTAINED. RIGHT HIP FX NOTED. EMS CALLED. PT BROUGHT TO ED FOR FUTHER EVAL. HOOKED UP TO ALL MONITORS. REPORT RECEIVED FROM MAMI STANFORD FROM [facility].
[2020-05-15 18:05] VITALS: BP 131/54
--- NOTE | 2020-05-15 18:20 | NUR ---
STATUS SPOKE WITH SON, BRENNON MENENDEZ ABOUT CARE FOR PT. GEMMA WILL HAVE TO SPEAK WITH FAMILY AND GET BACK WITH STAFF. DR BILL NOTIFIED
--- NOTE | 2020-05-15 18:20 | NUR ---
DR TRENT BILL ON PHONE WITH DR NEWMAN
--- NOTE | 2020-05-15 18:21 | NUR ---
HOSPITALIST DR BILL ON PHONE WITH DR ROLON
--- NOTE | 2020-05-15 18:27 | PCM.EKG ---
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 : 1935 Requested By: STEWART DUARTE Order Number: [id number] Reading MD: Stewart Duarte Measurements Intervals [place] Rate: 65 P: 50 NC: 156 QRS: 18 QRSD: 92 T: 5 QT: 486 QTc: 506 Interpretive Statements Sinus rhythm Probable anteroseptal infarct, old Minimal ST depression, inferior leads Prolonged QT interval Baseline wander in lead(s) I,II,aVR,aVF Compared to ECG 03/27/2018 19:44:27 Myocardial infarct finding now present ST (T wave) deviation now present Prolonged QT interval now present Left anterior fascicular block no longer present Electronically Signed On 06-03-2020 8:09:39 CDT by Stewart Duarte Please click the below link to view image of tracing.
[2020-05-15] MEDS ORDERED: MORPHINE SULFATE ONE (18:31)
[2020-05-15] MEDS ORDERED: ZOFRAN ONE (18:31)
--- NOTE | 2020-05-15 18:38 | NUR ---
REPORT REPORT GIVEN TO Patti LOPEZ RN ON MS
[2020-05-15 18:46] LABS: BASOPHIL % 0.3 % (0.0-0.2); LYMPHOCYTES # 0.49 10^3/uL1 (1.0-4.8); MEAN CORP HGB 32.5 pg (26-34); MONOCYTES # 0.2 10^3/uL (0.3-0.8); MONOCYTES % 6.4 % (5.0-12.0); PLATELET COUNT 107 10^3/uL (150-400); RED CELL DISTRIBUTION WIDTH 12.9 % (11.5-14.5)
[2020-05-15 18:54] LABS: CALCIUM 7.7 mg/dL (8.4-10.5); CARBON DIOXIDE 28.1 mmol/L (20.0-32)
--- NOTE | 2020-05-15 18:59 | ER.PDOC ---
General Chief Complaint: Extremities Stated Complaint: RIGHT HIP FX Time seen by MD: 19:00 Source: patient Exam Limitations: no limitations, physical impairment, other (APHASIC) History of Present Illness Initial Comments FELL TODAY Timing/Duration: just prior to arrival Where Occured: care home Quality: moderate Method of Injury/Prior Injury: fell Location: hip (R) Other Injuries: none Prior symptoms/Treatment: Similar symptoms previous Allergies: Coded Allergies: No Known Allergies (Unverified , 02/08/18) Past Medical History Medical History: congestive heart failure, parkinson Surgical History: cholecystectomy, mastectomy LMP (females 10-50): postmenopause Social History Alcohol Use: none Drug Use: none Reviewed Nursing Reviewed: Vital Signs, Abn. Noted Review of Systems All Other Systems: Reviewed and Negative Physical Exam General Appearance: No Apparent Distress, WD/WN Extremities: non-tender, no obvious injury, no pedal edema, nml ROM, nml tendon exam EENT: eyes nml inspection, nml ENT inspection, pharynx nml Neck: nml inspection, non-tender Cardiovascular/Respiratory: Regular Rate, Rhythm, No M/R/G, Normal Peripheral Pulses, No JVD, Normal Breath Sounds, No Respiratory Distress Abdominal: Non-Tender, No Organomegaly, No Hernia Back: Normal Inspection, No CVA Tenderness Extremities: Bony-Point Tenderness, Pain With Movement, Tenderness, Unable to Bear Weight Neuro/Psych: Alert, senior linux 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 (05/15/20 17:44) Helicobacter Pylori (05/15/20 17:44) Xr Chest 1v (05/15/20 17:44) Ekg-Routine (05/15/20 17:44) Morphine Sulfate (Morphine Sulfate) (05/15/20 17:44) Ondansetron Hcl/Pf (Zofran) (05/15/20 17:44) Urinalysis (05/15/20 17:50) Ondansetron Hcl/Pf (Zofran) (05/15/20 18:31) Morphine Sulfate (Morphine Sulfate) (05/15/20 18:31) Vital Signs Date Time Temp Pulse Resp B/P (MAP) Pulse Ox O2 Delivery O2 Flow Rate FiO2 05/15/20 18:05 99.1 64 18 05/15/20 17:50 99.1 64 18 95 05/15/20 17:49 99.1 64 18 131/54 (79) 95 Room Air Administered Medications Medications (Trade) Dose Ordered Sig/Erinn Route PRN Reason Start Time Stop Time Status Last Admin Dose Admin Morphine Sulfate (Morphine Sulfate) 2 mg STAT STAT IV 05/15/20 17:44 05/15/20 17:50 DC 05/15/20 18:40 2 MG Ondansetron HCl (Zofran) 4 mg STAT STAT IV 05/15/20 17:44 05/15/20 17:50 DC 05/15/20 18:41 4 MG Laboratory Tests Test 05/15/20 18:05 05/15/20 18:40 Helicobacter pylori Screen NEGATIVE (NEGATIVE) White Blood Count 3.8 10^3/uL (4.5-11.0) L Red Blood Count 4.18 10^6/uL (4.00-5.20) Hemoglobin 13.6 g/dL (12.0-15.0) Hematocrit 40.5 % (36.0-46.0) Mean Corpuscular Volume 96.9 fL (78-100) Mean Corpuscular Hemoglobin 32.5 pg (26-34) Mean Corpuscular Hemoglobin Concent 33.6 g/dL (33-36.5) Red Cell Distribution Width 12.9 % (11.5-14.5) Platelet Count 107 10^3/uL (150-400) L Mean Platelet Volume 10.3 fL (7.8-11.0) Neutrophils (%) (Auto) 80.0 % (41.0-85.0) Lymphocytes (%) (Auto) 13.0 % (24.0-44.0) L Monocytes (%) (Auto) 6.4 % (5.0-12.0) Neutrophils # (Auto) 3.0 10^3/uL (1.8-7.7) Lymphocytes # (Auto) 0.49 10^3/uL1 (1.0-4.8) L Monocytes # (Auto) 0.2 10^3/uL (0.3-0.8) L Absolute Immature Granulocyte (auto 0.01 10^3 u/L (0-2) Absolute Eosinophils (auto) 0.0 10^3/uL (0.0-0.2) Immature Granulocytes % 0.30 % (0.00-0.50) Eosinophils % 0.0 % (0.0-5.0) Basophils % 0.3 % (0.0-0.2) H Basophils # 0.0 10^3/uL (0.0-0.1) Consult/PCP Time Consult/PCP Called: 19:00 Consult/PCP: ALESIA RILEY Departure Time of Disposition: 19:00 Disposition: 09 ADMITTED INPATIENT Impression: Primary Impression: Hip fracture Condition: Stable Referrals: WILBER GRAVES (PCP) PRIMARY CARE PROVIDER Duration or Time Spent with Pa: SERGIO MILAN MD May 15, 2020 18:59
[2020-05-15] MEDS ORDERED: ZOFRAN IV PRN (19:00)
[2020-05-15] MEDS ORDERED: MORPHINE SULFATE IV PRN (19:00)
--- NOTE | 2020-05-15 19:37 | DIREP ---
PROCEDURE:CHEST 1 VIEW COMPARISON:[facility], CR, XRAY CHEST SINGLE VW, 03/27/2018, 07:07 PM. INDICATIONS:hip fracture FINDINGS: LUNGS/PLEURA:The patient is rotated to the right. There are increased interstitial markings in both lungs which were on previous study. No new infiltrates. VASCULATURE:Normal. Unremarkable pulmonary vasculature. CARDIAC:Normal. No cardiac silhouette abnormality or cardiomegaly. MEDIASTINUM:Aorta is calcified and tortuous. BONES:Normal. No fracture or visible bony lesion. OTHER:Negative. CONCLUSION:Increased interstitial markings in both lungs which were on previous study consistent with chronic changes. Dictated by: Gilberto Machuca M.D. on 05/15/2020 at 07:35 PM
[2020-05-15] MEDS: NS 1000ML 1,000 ML IV SCH (20:16)
[2020-05-15 22:00] VITALS: BP 130/52
--- NOTE | 2020-05-15 22:00 | NUR ---
UPDATE SPOKE TO GEMMA, PT'S SON AND POA. FAMILY WAS THINKING ABOUT TRYING TO TRANSFER HER TO [facility] BECAUSE THEY THINK SOMEONE TOLD THEM WE WEREN'T GOING TO BE ENTERING HER ROOM TO TAKE CARE OF HER BECAUSE SHE WAS COVID POSITIVE. I ASSURED HIM THAT WAS NOT THE CASE. THEY ALSO THINK SOMEONE TOLD THEM SHE WASN'T GETTING PAIN MEDICATION. I INFORMED HIM SHE HAD MORPHINE IN THE ER AND HAS MORE ORDERED PRN. I TOLD HIM I WOULD WATCH HER FOR SIGNS OF PAIN AND GIVE HER THE MEDICATION NEEDED. HE INQUIRED ABOUT IF SHE WOULD HAVE SURGERY. I TOLD HIM DR NEWMAN WOULD BE IN TO ASSESS HER. THE SON W0ULD LIKE DR NEWMAN TO CALL HIM TO DISCUSS THE PLAN.
[2020-05-16 01:14] VITALS: BP 127/67
[2020-05-16] MEDS: NS 1000ML 1,000 ML IV SCH ×2 (01:39→14:48)
[2020-05-16 04:05] VITALS: BP 152/81
[2020-05-16] MEDS ORDERED: ASCO500C9 PO ×2 (04:33→04:36)
[2020-05-16] MEDS ORDERED: ZINC220T3 PO (04:36)
[2020-05-16] MEDS ORDERED: QUET25TA5 PO (04:37)
[2020-05-16] MEDS ORDERED: TRAM50TA PO (04:49)
[2020-05-16] MEDS ORDERED: BUSP10TA PO (04:50)
[2020-05-16] MEDS ORDERED: CITA20TA6 PO (04:52)
[2020-05-16] MEDS ORDERED: FOLI0.8C PO (04:54)
[2020-05-16] MEDS ORDERED: DONE10TA7 PO (05:08)
[2020-05-16] MEDS ORDERED: CARB1TAB20 PO (05:09)
[2020-05-16] MEDS ORDERED: ACET500T73 PO ×4 (05:11→05:26)
[2020-05-16] MEDS ORDERED: TRAZ-163 PO (05:20)
--- NOTE | 2020-05-16 08:00 | NUR ---
SON DR. NEWMAN ON PHONE WITH SONGEMMA POA AT THIS TIME
--- NOTE | 2020-05-16 08:13 | PCM.HP ---
History of Present Illness Reason for Visit: (1) Hip fracture ICD Code: S72.009A - Fracture of unspecified part of neck of unspecified femur, initial encounter for closed fracture SNOMED: 546425164 (2) Dementia with behavioral disturbance ICD Code: F03.91 - Unspecified dementia with behavioral disturbance SNOMED: 0215985519859 (3) COVID-19 virus detected ICD Code: U07.1 - COVID-19 SNOMED: 219231528, [id number] Was this Problem Present on Ad: Yes-DX present @time ofIP (Tested at the residential 05/12/2020) Hx of Present Illness 85-year-old female patient who is a residential resident, who fell several days ago and was found on the floor at the residential. She was transported to the ER after x-rays at the residential shows a subcapital fracture of the right hip. Dr. Little reviewed x-rays and will discuss options with family as to how to proceed Patient has a chronic history of Parkinson's and dementia. Travel History [place] RISK:Travel to/contact w: No Review of Systems Constitutional: No: Fever Eyes: No: Pain, Vision change, Conjunctivae inflammation, Eyelid inflammation, Other, Redness ENT: No: Ear pain, Ear discharge, Nose pain, Nose discharge, Nose congestion, Mouth pain, Mouth swelling, Throat pain, Throat swelling, Other Other Review of systems partially provided by residential patient unable to provide history due to severe dementia Allergies: Coded Allergies: No Known Allergies (Unverified , 02/08/18) Scheduled Acetaminophen (Acetaminophen), 1 MG PO AM Acetaminophen (Acetaminophen), 500 MG PO Q6HR Ascorbic Acid (Vitamin C), 1 CAP PO BID Buspirone Hcl (Buspirone Hcl), 1 TAB PO BID, (Reported) Carbidopa/Levodopa (Carbidopa-Levodopa 10-100 Tab), 1 TAB PO TID, (Reported) Citalopram Hydrobromide (Citalopram Hbr), 1 TAB PO DAILY, (Reported) Donepezil Hcl (Donepezil Hcl), 2 TAB PO DAILY, (Reported) Folic Acid (Folic Acid), 0.8 MG PO DAILY24, (Reported) Quetiapine Fumarate (Seroquel), 25 MG PO BID, (Reported) Tramadol Hcl (Tramadol Hcl), 25 MG PO Q6HR, (Reported) Trazodone Hcl (Trazodone Hcl), 50 MG PO HS Trazodone Hcl (Trazodone Hcl), 1 TAB PO HS, (Reported) Zinc Sulfate (Zinc Sulfate), 220 MG PO OT, (Reported) Discontinued Medications Citalopram Hydrobromide (Celexa), 15 MG PO DAILY Discontinued Reason: Cancel Folic Acid (Folic Acid), 1 MG PO DAILY Discontinued Reason: No Longer Taking Risperidone (Risperdal), 1 MG PO BID Discontinued Reason: No Longer Taking VTE VTE Risk Total Score: 3 VTE Risk Score VTE Risk: Score 0-1 = Low Risk (Aggressive mobilization; early ambulation; no VTE prophylaxis required) Score 2: Moderate Risk (Intermittent/Pneumatic Compression Device OR Lovenox/Heparin/Coumadin) Score 3-4: High Risk (Intermittent/Pneumatic Compression Device AND Lovenox/Heparin/Coumadin) Score > or =5: Highest Risk (Intermittent/Pneumatic Compression Device AND Lovenox/Heparin/Coumadin) Mechanical device ordered: Yes VTE VTE Present on Admission: No Currently receiving anticoagul: No VTE Risk Total Score: 3 Exam Vital Signs Vital Signs Date Time Temp Pulse Resp B/P (MAP) Pulse Ox O2 Delivery O2 Flow Rate FiO2 05/16/20 04:05 97.8 53 16 152/81 (104) 95 Room Air 05/15/20 22:00 2.00 General Appearance: Alert, Other (Patient unable to provide significant information due to severe dementia) HEENT: Atraumatic Respiratory: Clear to auscultation Cardiovascular: Regular rate Abdominal: Normal bowel sounds, Soft, No tenderness Extremities: No edema Skin: No rash Neuro: Cranial nerves 3-12 NL Psych/Mental Status: Other (Severe dementia) Assessment/Plan Assessment/Plan Assessment/Plan Assessment: 85-year-old female with a past medical history of advanced severe dementia and Parkinson's disease presents from the residential after a fall and it was discovered that she had a right subcapital hip fracture. She was also tested at the residential several days ago on the for COVID-19 and was positive she she has not been significantly hypoxic and chest x-ray has not revealed an acute pneumonia. Dr. Little was consulted and reviewed the images he will discuss options for treatment with family. Patient had previously been ambulatory to some extent at the residential Plan; resume patient's home medications COVID-19 precautions due to positive test. Await family's decision regarding surgery and consultation with Dr. Little pain control as needed resume home medications Problems: (1) Dementia with behavioral disturbance Status: Chronic ICD Code: F03.91 - Unspecified dementia with behavioral disturbance SNOMED: 0976626036878 (2) COVID-19 virus detected Status: Acute ICD Code: U07.1 - COVID-19 SNOMED: 157792448, 652928154 (3) Hip fracture Status: Acute ICD Code: S72.009A - Fracture of unspecified part of neck of unspecified femur, initial encounter for closed fracture SNOMED: 325416181 Patient History: Chronic obstructive pulmonary disease G8 SISTER Unknown G8 BROTHER Problem Qualifiers (1) Dementia with behavioral disturbance: Dementia type: Parkinson's disease Qualified Codes: G20 - Parkinson's disease; F02.81 - Dementia in other diseases classified elsewhere with behavioral disturbance JOSE ROLON MD May 16, 2020 08:13
[2020-05-16] MEDS ORDERED: VITAMIN C PO SCH (09:00)
[2020-05-16] MEDS ORDERED: SEROQUEL PO SCH (09:00)
[2020-05-16] MEDS ORDERED: ZINC SULFATE PO SCH (09:00)
[2020-05-16] MEDS ORDERED: BUSPAR PO SCH (09:00)
[2020-05-16] MEDS ORDERED: ARICEPT ODT PO SCH (09:00)
[2020-05-16] MEDS ORDERED: FOLIC ACID PO SCH (09:00)
[2020-05-16] MEDS ORDERED: CeleXA PO SCH (09:00)
--- NOTE | 2020-05-16 09:19 | DIREP ---
PROCEDURE:XRAY HIP MIN 2VW-RT COMPARISON:None. INDICATIONS:RIGHT HIP FX FINDINGS: BONES:Impacted fracture of the right femoral neck. JOINTS:Normal. SOFT TISSUES:Normal. OTHER:No additional findings. CONCLUSION:Impacted fracture of the right femoral neck. Dictated by: Gilberto Machuca M.D. on 05/16/2020 at 09:18 AM
[2020-05-16] MEDS: SINEMET PO SCH ×2 (09:56→14:31)
[2020-05-16 09:59] VITALS: BP 133/63
--- NOTE | 2020-05-16 10:12 | HPH ---
ADMIT DATE: 05/16/2020 CHIEF COMPLAINT: Painful right hip. HISTORY OF PRESENT ILLNESS: The patient is an 85-year-old assisted resident with dementia and Parkinson's. According to the family, reportedly fell several days ago and was found on the floor at the assisted. She was brought to the Emergency Room last night after x-rays at the assisted showed a subcapital fracture of the right hip. According to the nursing report, the patient was walking some after her injury, but was complaining of pain. According to the family history, I spoke with her son who has not seen her in 6 months, but according to the family member, she could walk some at the assisted. The patient reportedly had fairly advanced Alzheimer's deformity, she did not recognize the family, had some difficulty feeding herself. The patient's x-rays are on the mobile unit, I reviewed the x-rays. ASSESSMENT: Subcapital fracture of the right hip. Other diagnoses include Parkinson's as well as severe dementia. PLAN: We will review the x-rays. I will discuss the options with the patient's family and then proceed from there. Regino Little MD DR: EDDA/manjit JOB# [id number] GUST[place]O
[2020-05-16] MEDS ORDERED: ULTRAM PO SCH (12:00)
[2020-05-16] MEDS ORDERED: TYLENOL PO SCH (12:00)
--- NOTE | 2020-05-16 13:33 | PRM.PN ---
Subjective Subjective Date: May 16, 2020 Time: 13:29 Subjective Xrays show valgus impacted right subcapital hip fx In light of all her other medical problems I would advocate conservative treatment I spoke with her son who has medicalPOA and he is in agreement Will have nursing staff mobilize her as much as possible Can probably return to [place] in a day or two Patient History: Chronic obstructive pulmonary disease G8 SISTER Unknown G8 BROTHER VTE VTE Risk Total Score: 3 VTE Risk Score VTE Risk: Score 0-1 = Low Risk (Aggressive mobilization; early ambulation; no VTE prophylaxis required) Score 2: Moderate Risk (Intermittent/Pneumatic Compression Device OR Lovenox/Heparin/Coumadin) Score 3-4: High Risk (Intermittent/Pneumatic Compression Device AND Lovenox/Heparin/Coumadin) Score > or =5: Highest Risk (Intermittent/Pneumatic Compression Device AND Lovenox/Heparin/Coumadin) Mechanical device ordered: Yes Review of Systems Constitutional: No: Fever Eyes: No: Pain, Vision change, Conjunctivae inflammation, Eyelid inflammation, Other, Redness ENT: No: Ear pain, Ear discharge, Nose pain, Nose discharge, Nose congestion, Mouth pain, Mouth swelling, Throat pain, Throat swelling, Other Allergies: Coded Allergies: No Known Allergies (Unverified , 02/08/18) Scheduled Acetaminophen (Acetaminophen), 1 MG PO AM Acetaminophen (Acetaminophen), 500 MG PO Q6HR Ascorbic Acid (Vitamin C), 1 CAP PO BID Buspirone Hcl (Buspirone Hcl), 1 TAB PO BID, (Reported) Carbidopa/Levodopa (Carbidopa-Levodopa 10-100 Tab), 1 TAB PO TID, (Reported) Citalopram Hydrobromide (Citalopram Hbr), 1 TAB PO DAILY, (Reported) Donepezil Hcl (Donepezil Hcl), 2 TAB PO DAILY, (Reported) Folic Acid (Folic Acid), 0.8 MG PO DAILY24, (Reported) Quetiapine Fumarate (Seroquel), 25 MG PO BID, (Reported) Tramadol Hcl (Tramadol Hcl), 25 MG PO Q6HR, (Reported) Trazodone Hcl (Trazodone Hcl), 50 MG PO HS Trazodone Hcl (Trazodone Hcl), 1 TAB PO HS, (Reported) Zinc Sulfate (Zinc Sulfate), 220 MG PO OT, (Reported) Discontinued Medications Citalopram Hydrobromide (Celexa), 15 MG PO DAILY Discontinued Reason: Cancel Folic Acid (Folic Acid), 1 MG PO DAILY Discontinued Reason: No Longer Taking Risperidone (Risperdal), 1 MG PO BID Discontinued Reason: No Longer Taking Objective Vitals and I/O Vital Sign - Last 24 Hours 05/15/20 05/15/20 05/15/20 05/15/20 17:49 17:50 18:05 22:00 Temp 99.1 99.1 99.1 98.2 Pulse 64 64 64 57 Resp 18 18 18 16 B/P (MAP) 131/54 (79) 130/52 (78) Pulse Ox 95 95 99 O2 Delivery Room Air Room Air 05/15/20 05/16/20 05/16/20 05/16/20 22:00 01:14 04:05 09:59 Temp 98.1 97.8 99.9 Pulse 108 53 85 Resp 16 16 18 B/P (MAP) 127/67 (87) 152/81 (104) 133/63 (86) Pulse Ox 95 95 93 O2 Delivery Nasal Cannula Room Air Room Air Nasal Canula O2 Flow Rate 2.00 2.00 Intake and Output 05/16/20 07:00 Intake Total 1000 ml Output Total 500 ml Balance 500 ml General: Alert, Other (Patient unable to provide significant information due to severe dementia) HEENT: Atraumatic Lungs: Clear to auscultation Heart: Regular rate Abdomen: Normal bowel sounds, Soft, No tenderness Extremities: No edema Neuro: Cranial nerves 3-12 NL Psych/Mental Status: Other (Severe dementia) All Results(Lab/Rad) Laboratory Tests Test 05/15/20 18:05 05/15/20 18:40 Sodium Level 137 mmol/L Potassium Level 3.7 mmol/L Chloride Level 102.0 mmol/L Carbon Dioxide Level 28.1 mmol/L Anion Gap 10.6 Blood Urea Nitrogen 13 mg/dL Creatinine 0.75 mg/dL Estimated GFR () 88.7 Est GFR (CKD-EPI)(Non-Afr [place]an) 73.3 BUN/Creatinine Ratio 17.0 Glucose Level 102 mg/dL Calcium Level 7.7 mg/dL Total Bilirubin 0.4 mg/dL Aspartate Amino Transf (AST/SGOT) 40 U/L Alanine Aminotransferase (ALT/SGPT) 10 U/L Alkaline Phosphatase 61 U/L Total Creatine Kinase 1284 U/L Creatine Kinase MB 6.8 ng/mL Troponin I 0.08 ng/mL Pro-B-Type Natriuretic Peptide 863 pg/mL Total Protein 6.3 g/dL Albumin 3.0 g/dL Globulin 3.3 Helicobacter pylori Screen NEGATIVE White Blood Count 3.8 10^3/uL Red Blood Count 4.18 10^6/uL Hemoglobin 13.6 g/dL Hematocrit 40.5 % Mean Corpuscular Volume 96.9 fL Mean Corpuscular Hemoglobin 32.5 pg Mean Corpuscular Hemoglobin Concent 33.6 g/dL Red Cell Distribution Width 12.9 % Platelet Count 107 10^3/uL Mean Platelet Volume 10.3 fL Neutrophils (%) (Auto) 80.0 % Lymphocytes (%) (Auto) 13.0 % Monocytes (%) (Auto) 6.4 % Neutrophils # (Auto) 3.0 10^3/uL Lymphocytes # (Auto) 0.49 10^3/uL1 Monocytes # (Auto) 0.2 10^3/uL Absolute Immature Granulocyte (auto 0.01 10^3 u/L Absolute Eosinophils (auto) 0.0 10^3/uL Immature Granulocytes % 0.30 % Eosinophils % 0.0 % Basophils % 0.3 % Basophils # 0.0 10^3/uL Prothrombin Time 11.0 SEC Prothrombin Time INR (Non-Therap) 1.1 Activated Partial Thromboplast Time 26.0 SEC Current Medications Medications (Trade) Dose Ordered Sig/Erinn Route PRN Reason Start Time Stop Time Status Last Admin Dose Admin Morphine Sulfate (Morphine Sulfate) 2 mg STAT STAT IV 05/15/20 17:44 05/15/20 17:50 DC 05/15/20 18:40 Ondansetron HCl (Zofran) 4 mg STAT STAT IV 05/15/20 17:44 05/15/20 17:50 DC 05/15/20 18:41 Ondansetron HCl (Zofran) 4 mg STK-MED ONCE .ROUTE 05/15/20 18:31 05/15/20 18:33 DC Morphine Sulfate (Morphine Sulfate) 2 mg STK-MED ONCE .ROUTE 05/15/20 18:31 05/15/20 18:33 DC Morphine Sulfate (Morphine Sulfate) 2 mg Q4H PRN IV PAIN 4 - 6 05/15/20 19:00 06/14/20 18:59 Ondansetron HCl (Zofran) 4 mg Q4H PRN IV NAUSEA / VOMITING 05/15/20 19:00 06/14/20 18:59 Sodium Chloride 1,000 ml @ 150 mls/hr Q8H IV 05/15/20 19:30 06/14/20 19:29 05/16/20 01:39 Acetaminophen (Tylenol) 500 mg Q6HR PO 05/16/20 12:00 06/15/20 11:59 Buspirone HCl (Buspar) 10 mg BID PO 05/16/20 09:00 06/15/20 08:59 05/16/20 09:56 Carbidopa/Levodopa (Sinemet) 1 each TID PO 05/16/20 09:00 06/15/20 08:59 05/16/20 09:56 Citalopram Hydrobromide (CeleXA) 20 mg DAILY PO 05/16/20 09:00 06/15/20 08:59 05/16/20 09:56 Quetiapine Fumarate (Seroquel) 25 mg BID PO 05/16/20 09:00 06/15/20 08:59 05/16/20 09:56 Tramadol HCl (Ultram) 25 mg Q6HR PO 05/16/20 12:00 06/15/20 11:59 Trazodone HCl (Desyrel) 50 mg HS PO 05/16/20 21:00 06/15/20 20:59 Ascorbic Acid (Vitamin C) 500 mg BID PO 05/16/20 09:00 06/15/20 08:59 05/16/20 09:56 Donepezil HCl (Aricept Odt) 10 mg DAILY PO 05/16/20 09:00 06/15/20 08:59 05/16/20 09:56 Folic Acid (Folic Acid) 1 mg DAILY PO 05/16/20 09:00 06/15/20 08:59 05/16/20 09:56 Zinc Sulfate (Zinc Sulfate) 220 mg DAILY PO 05/16/20 09:00 06/15/20 08:59 05/16/20 09:56 Course Sepsis Screening Results: Posi: NEGATIVE Sepsis Qualifier/Stage: NO DEFINITE RISK Duration or Total Time Spent w: 29 M Vitals & review Data Vital Sign - Last 24 Hours 05/15/20 05/15/20 05/15/20 05/15/20 17:49 17:50 18:05 22:00 Temp 99.1 99.1 99.1 98.2 Pulse 64 64 64 57 Resp 18 18 18 16 B/P (MAP) 131/54 (79) 130/52 (78) Pulse Ox 95 95 99 O2 Delivery Room Air Room Air 05/15/20 05/16/20 05/16/20 05/16/20 22:00 01:14 04:05 09:59 Temp 98.1 97.8 99.9 Pulse 108 53 85 Resp 16 16 18 B/P (MAP) 127/67 (87) 152/81 (104) 133/63 (86) Pulse Ox 95 95 93 O2 Delivery Nasal Cannula Room Air Room Air Nasal Canula O2 Flow Rate 2.00 2.00 Intake and Output 05/16/20 07:00 Intake Total 1000 ml Output Total 500 ml Balance 500 ml Laboratory Tests Test 05/15/20 18:05 05/15/20 18:40 Sodium Level 137 mmol/L Potassium Level 3.7 mmol/L Chloride Level 102.0 mmol/L Carbon Dioxide Level 28.1 mmol/L Anion Gap 10.6 Blood Urea Nitrogen 13 mg/dL Creatinine 0.75 mg/dL Estimated GFR () 88.7 Est GFR (CKD-EPI)(Non-Afr [place]an) 73.3 BUN/Creatinine Ratio 17.0 Glucose Level 102 mg/dL Calcium Level 7.7 mg/dL Total Bilirubin 0.4 mg/dL Aspartate Amino Transf (AST/SGOT) 40 U/L Alanine Aminotransferase (ALT/SGPT) 10 U/L Alkaline Phosphatase 61 U/L Total Creatine Kinase 1284 U/L Creatine Kinase MB 6.8 ng/mL Troponin I 0.08 ng/mL Pro-B-Type Natriuretic Peptide 863 pg/mL Total Protein 6.3 g/dL Albumin 3.0 g/dL Globulin 3.3 Helicobacter pylori Screen NEGATIVE White Blood Count 3.8 10^3/uL Red Blood Count 4.18 10^6/uL Hemoglobin 13.6 g/dL Hematocrit 40.5 % Mean Corpuscular Volume 96.9 fL Mean Corpuscular Hemoglobin 32.5 pg Mean Corpuscular Hemoglobin Concent 33.6 g/dL Red Cell Distribution Width 12.9 % Platelet Count 107 10^3/uL Mean Platelet Volume 10.3 fL Neutrophils (%) (Auto) 80.0 % Lymphocytes (%) (Auto) 13.0 % Monocytes (%) (Auto) 6.4 % Neutrophils # (Auto) 3.0 10^3/uL Lymphocytes # (Auto) 0.49 10^3/uL1 Monocytes # (Auto) 0.2 10^3/uL Absolute Immature Granulocyte (auto 0.01 10^3 u/L Absolute Eosinophils (auto) 0.0 10^3/uL Immature Granulocytes % 0.30 % Eosinophils % 0.0 % Basophils % 0.3 % Basophils # 0.0 10^3/uL Prothrombin Time 11.0 SEC Prothrombin Time INR (Non-Therap) 1.1 Activated Partial Thromboplast Time 26.0 SEC Current Medications Medications (Trade) Dose Ordered Sig/Erinn PRN Reason Start Time Stop Time Status Last Admin Acetaminophen (Tylenol) 500 mg Q6HR 05/16/20 12:00 06/15/20 11:59 Ascorbic Acid (Vitamin C) 500 mg BID 05/16/20 09:00 06/15/20 08:59 05/16/20 09:56 Buspirone HCl (Buspar) 10 mg BID 05/16/20 09:00 06/15/20 08:59 05/16/20 09:56 Carbidopa/Levodopa (Sinemet) 1 each TID 05/16/20 09:00 06/15/20 08:59 05/16/20 09:56 Citalopram Hydrobromide (CeleXA) 20 mg DAILY 05/16/20 09:00 06/15/20 08:59 05/16/20 09:56 Donepezil HCl (Aricept Odt) 10 mg DAILY 05/16/20 09:00 06/15/20 08:59 05/16/20 09:56 Folic Acid (Folic Acid) 1 mg DAILY 05/16/20 09:00 06/15/20 08:59 05/16/20 09:56 Morphine Sulfate (Morphine Sulfate) 2 mg Q4H PRN PAIN 4 - 6 05/15/20 19:00 06/14/20 18:59 Ondansetron HCl (Zofran) 4 mg Q4H PRN NAUSEA / VOMITING 05/15/20 19:00 06/14/20 18:59 Quetiapine Fumarate (Seroquel) 25 mg BID 05/16/20 09:00 06/15/20 08:59 05/16/20 09:56 Sodium Chloride 1,000 ml @ 150 mls/hr Q8H 05/15/20 19:30 06/14/20 19:29 05/16/20 01:39 Tramadol HCl (Ultram) 25 mg Q6HR 05/16/20 12:00 06/15/20 11:59 Trazodone HCl (Desyrel) 50 mg HS 05/16/20 21:00 06/15/20 20:59 Zinc Sulfate (Zinc Sulfate) 220 mg DAILY 05/16/20 09:00 06/15/20 08:59 05/16/20 09:56 LEVEL 1 SEPSIS INFECTION CRITE: None/Not assessed LEVEL 2-SIRS (LIST ALL THAT AP: None/Not assessed Cardiovascular Evidence: Not Assessed or None Hematologic Evidence: None/Not assessed Hepatic Evidence: None/Not assessed Metabolic Evidence: None/Not assessed Neurological Evidence: None/Not assessed Respiratory Evidence: Need for O2 to keep>90% Renal Evidence: None/Not assessed O2 Sat by Pulse Oximetry: 93 Oxygen Flow Rate: 2.00 Assessment/Plan Assessment/Plan Assessment/Plan Assessment: 85-year-old female with a past medical history of advanced severe dementia and Parkinson's disease presents from the [facility] after a fall and it was discovered that she had a right subcapital hip fracture. She was also tested at the correction several days ago on the for COVID-19 and was positive she she has not been significantly hypoxic and chest x-ray has not revealed an acute pneumonia. Dr. Little was consulted and reviewed the images he will discuss options for treatment with family. Patient had previously been ambulatory to some extent at the correction Plan; resume patient's home medications COVID-19 precautions due to positive test. Await family's decision regarding surgery and consultation with Dr. Little pain control as needed resume home medications Plan Assessment: 85-year-old female with a past medical history of advanced severe dementia and Parkinson's disease presents from the correction after a fall and it was discovered that she had a right subcapital hip fracture. She was also tested at the correction several days ago on the for COVID-19 and was positive she she has not been significantly hypoxic and chest x-ray has not revealed an acute pneumonia. Dr. Little was consulted and reviewed the images he will discuss options for treatment with family. Patient had previously been ambulatory to some extent at the correction Plan; resume patient's home medications COVID-19 precautions due to positive test. Await family's decision regarding surgery and consultation with Dr. Little pain control as needed resume home medications MERCEDES LITTLE MD May 16, 2020 13:33
[2020-05-16] MEDS ORDERED: MORPHINE SULFATE IV PRN (14:00)
[2020-05-16 14:33] VITALS: BP 121/57
--- NOTE | 2020-05-16 15:10 | PRM.DC ---
Discharge Summary Date of Discharge: May 16, 2020 Time of Request to Discharge: 15:10 Additional Comments 85-year-old female patient who is a alf resident, who fell several days ago and was found on the floor at the alf. She was transported to the ER after x-rays at the alf shows a subcapital fracture of the right hip. Dr. Little reviewed x-rays and will discuss options with family as to how to proceed Patient has a chronic history of Parkinson's and dementia. Patient History: Chronic obstructive pulmonary disease G8 SISTER Unknown G8 BROTHER General: Alert, Other (Right hip tenderness to palpation confused) Neck: Supple, No JVD Heart: Regular rate Abdomen: Normal bowel sounds, No tenderness Extremities: No clubbing, Other Skin: No rashes, No breakdown Neuro: Cranial nerves 3-12 NL Psych/Mental Status: Other (Advanced dementia limits exam) Scheduled Acetaminophen (Acetaminophen), 1 MG PO AM Acetaminophen (Acetaminophen), 500 MG PO Q6HR Ascorbic Acid (Vitamin C), 1 CAP PO BID Buspirone Hcl (Buspirone Hcl), 1 TAB PO BID, (Reported) Carbidopa/Levodopa (Carbidopa-Levodopa 10-100 Tab), 1 TAB PO TID, (Reported) Citalopram Hydrobromide (Citalopram Hbr), 1 TAB PO DAILY, (Reported) Donepezil Hcl (Donepezil Hcl), 2 TAB PO DAILY, (Reported) Folic Acid (Folic Acid), 0.8 MG PO DAILY24, (Reported) Quetiapine Fumarate (Seroquel), 25 MG PO BID, (Reported) Tramadol Hcl (Tramadol Hcl), 25 MG PO Q6HR, (Reported) Trazodone Hcl (Trazodone Hcl), 50 MG PO HS Trazodone Hcl (Trazodone Hcl), 1 TAB PO HS, (Reported) Zinc Sulfate (Zinc Sulfate), 220 MG PO OT, (Reported) Discontinued Medications Citalopram Hydrobromide (Celexa), 15 MG PO DAILY Discontinued Reason: Cancel Folic Acid (Folic Acid), 1 MG PO DAILY Discontinued Reason: No Longer Taking Risperidone (Risperdal), 1 MG PO BID Discontinued Reason: No Longer Taking Sepsis Evaluation @ Discharge Vital Sign - Last 24 Hours 05/15/20 05/15/20 05/15/201/20 17:49 17:50 18:05 22:00 Temp 99.1 99.1 99.1 98.2 Pulse 64 64 64 57 Resp 18 18 18 16 B/P (MAP) 131/54 (79) 130/52 (78) Pulse Ox 95 95 99 O2 Delivery Room Air Room Air 05/15/20 05/16/20 05/16/20 05/16/20 22:00 01:14 04:05 09:59 Temp 98.1 97.8 99.9 Pulse 108 53 85 Resp 16 16 18 B/P (MAP) 127/67 (87) 152/81 (104) 133/63 (86) Pulse Ox 95 95 93 O2 Delivery Nasal Cannula Room Air Room Air Nasal Canula O2 Flow Rate 2.00 2.00 Intake and Output 05/16/20 07:00 Intake Total 1000 ml Output Total 500 ml Balance 500 ml Laboratory Tests Test 05/15/20 18:05 05/15/20 18:40 Sodium Level 137 mmol/L Potassium Level 3.7 mmol/L Chloride Level 102.0 mmol/L Carbon Dioxide Level 28.1 mmol/L Anion Gap 10.6 Blood Urea Nitrogen 13 mg/dL Creatinine 0.75 mg/dL Estimated GFR () 88.7 Est GFR (CKD-EPI)(Non-Afr Citizen Of [place]) 73.3 BUN/Creatinine Ratio 17.0 Glucose Level 102 mg/dL Calcium Level 7.7 mg/dL Total Bilirubin 0.4 mg/dL Aspartate Amino Transf (AST/SGOT) 40 U/L Alanine Aminotransferase (ALT/SGPT) 10 U/L Alkaline Phosphatase 61 U/L Total Creatine Kinase 1284 U/L Creatine Kinase MB 6.8 ng/mL Troponin I 0.08 ng/mL Pro-B-Type Natriuretic Peptide 863 pg/mL Total Protein 6.3 g/dL Albumin 3.0 g/dL Globulin 3.3 Helicobacter pylori Screen NEGATIVE White Blood Count 3.8 10^3/uL Red Blood Count 4.18 10^6/uL Hemoglobin 13.6 g/dL Hematocrit 40.5 % Mean Corpuscular Volume 96.9 fL Mean Corpuscular Hemoglobin 32.5 pg Mean Corpuscular Hemoglobin Concent 33.6 g/dL Red Cell Distribution Width 12.9 % Platelet Count 107 10^3/uL Mean Platelet Volume 10.3 fL Neutrophils (%) (Auto) 80.0 % Lymphocytes (%) (Auto) 13.0 % Monocytes (%) (Auto) 6.4 % Neutrophils # (Auto) 3.0 10^3/uL Lymphocytes # (Auto) 0.49 10^3/uL1 Monocytes # (Auto) 0.2 10^3/uL Absolute Immature Granulocyte (auto 0.01 10^3 u/L Absolute Eosinophils (auto) 0.0 10^3/uL Immature Granulocytes % 0.30 % Eosinophils % 0.0 % Basophils % 0.3 % Basophils # 0.0 10^3/uL Prothrombin Time 11.0 SEC Prothrombin Time INR (Non-Therap) 1.1 Activated Partial Thromboplast Time 26.0 SEC Current Medications Medications (Trade) Dose Ordered Sig/Erinn PRN Reason Start Time Stop Time Status Last Admin Acetaminophen (Tylenol) 500 mg Q6HR 05/16/20 12:00 06/15/20 11:59 Ascorbic Acid (Vitamin C) 500 mg BID 05/16/20 09:00 06/15/20 08:59 05/16/20 09:56 Buspirone HCl (Buspar) 10 mg BID 05/16/20 09:00 06/15/20 08:59 05/16/20 09:56 Carbidopa/Levodopa (Sinemet) 1 each TID 05/16/20 09:00 06/15/20 08:59 05/16/20 09:56 Citalopram Hydrobromide (CeleXA) 20 mg DAILY 05/16/20 09:00 06/15/20 08:59 05/16/20 09:56 Donepezil HCl (Aricept Odt) 10 mg DAILY 05/16/20 09:00 06/15/20 08:59 05/16/20 09:56 Folic Acid (Folic Acid) 1 mg DAILY 05/16/20 09:00 06/15/20 08:59 05/16/20 09:56 Morphine Sulfate (Morphine Sulfate) 2 mg Q4H PRN PAIN 4 - 6 05/15/20 19:00 06/14/20 18:59 Ondansetron HCl (Zofran) 4 mg Q4H PRN NAUSEA / VOMITING 05/15/20 19:00 06/14/20 18:59 Quetiapine Fumarate (Seroquel) 25 mg BID 05/16/20 09:00 06/15/20 08:59 05/16/20 09:56 Sodium Chloride 1,000 ml @ 150 mls/hr Q8H 05/15/20 19:30 06/14/20 19:29 05/16/20 01:39 Tramadol HCl (Ultram) 25 mg Q6HR 05/16/20 12:00 06/15/20 11:59 Trazodone HCl (Desyrel) 50 mg HS 05/16/20 21:00 06/15/20 20:59 Zinc Sulfate (Zinc Sulfate) 220 mg DAILY 05/16/20 09:00 06/15/20 08:59 05/16/20 09:56 Course Sepsis Screening Results: Posi: NEGATIVE Sepsis Qualifier/Stage: NO DEFINITE RISK Duration or Total Time Spent w: 29 M Vitals & review Data Vital Sign - Last 24 Hours 05/15/20 05/15/20 05/15/20 05/15/20 17:49 17:50 18:05 22:00 Temp 99.1 99.1 99.1 98.2 Pulse 64 64 64 57 Resp 18 18 18 16 B/P (MAP) 131/54 (79) 130/52 (78) Pulse Ox 95 95 99 O2 Delivery Room Air Room Air 05/15/20 05/16/20 05/16/20 05/16/20 22:00 01:14 04:05 09:59 Temp 98.1 97.8 99.9 Pulse 108 53 85 Resp 16 16 18 B/P (MAP) 127/67 (87) 152/81 (104) 133/63 (86) Pulse Ox 95 95 93 O2 Delivery Nasal Cannula Room Air Room Air Nasal Canula O2 Flow Rate 2.00 2.00 Intake and Output 05/16/20 07:00 Intake Total 1000 ml Output Total 500 ml Balance 500 ml Laboratory Tests Test 05/15/20 18:05 05/15/20 18:40 Sodium Level 137 mmol/L Potassium Level 3.7 mmol/L Chloride Level 102.0 mmol/L Carbon Dioxide Level 28.1 mmol/L Anion Gap 10.6 Blood Urea Nitrogen 13 mg/dL Creatinine 0.75 mg/dL Estimated GFR () 88.7 Est GFR (CKD-EPI)(Non-Afr Citizen Of [place]) 73.3 BUN/Creatinine Ratio 17.0 Glucose Level 102 mg/dL Calcium Level 7.7 mg/dL Total Bilirubin 0.4 mg/dL Aspartate Amino Transf (AST/SGOT) 40 U/L Alanine Aminotransferase (ALT/SGPT) 10 U/L Alkaline Phosphatase 61 U/L Total Creatine Kinase 1284 U/L Creatine Kinase MB 6.8 ng/mL Troponin I 0.08 ng/mL Pro-B-Type Natriuretic Peptide 863 pg/mL Total Protein 6.3 g/dL Albumin 3.0 g/dL Globulin 3.3 Helicobacter pylori Screen NEGATIVE White Blood Count 3.8 10^3/uL Red Blood Count 4.18 10^6/uL Hemoglobin 13.6 g/dL Hematocrit 40.5 % Mean Corpuscular Volume 96.9 fL Mean Corpuscular Hemoglobin 32.5 pg Mean Corpuscular Hemoglobin Concent 33.6 g/dL Red Cell Distribution Width 12.9 % Platelet Count 107 10^3/uL Mean Platelet Volume 10.3 fL Neutrophils (%) (Auto) 80.0 % Lymphocytes (%) (Auto) 13.0 % Monocytes (%) (Auto) 6.4 % Neutrophils # (Auto) 3.0 10^3/uL Lymphocytes # (Auto) 0.49 10^3/uL1 Monocytes # (Auto) 0.2 10^3/uL Absolute Immature Granulocyte (auto 0.01 10^3 u/L Absolute Eosinophils (auto) 0.0 10^3/uL Immature Granulocytes % 0.30 % Eosinophils % 0.0 % Basophils % 0.3 % Basophils # 0.0 10^3/uL Prothrombin Time 11.0 SEC Prothrombin Time INR (Non-Therap) 1.1 Activated Partial Thromboplast Time 26.0 SEC Current Medications Medications (Trade) Dose Ordered Sig/Erinn PRN Reason Start Time Stop Time Status Last Admin Acetaminophen (Tylenol) 500 mg Q6HR 05/16/20 12:00 06/15/20 11:59 Ascorbic Acid (Vitamin C) 500 mg BID 05/16/20 09:00 06/15/20 08:59 05/16/20 09:56 Buspirone HCl (Buspar) 10 mg BID 05/16/20 09:00 06/15/20 08:59 05/16/20 09:56 Carbidopa/Levodopa (Sinemet) 1 each TID 05/16/20 09:00 06/15/20 08:59 05/16/20 09:56 Citalopram Hydrobromide (CeleXA) 20 mg DAILY 05/16/20 09:00 06/15/20 08:59 05/16/20 09:56 Donepezil HCl (Aricept Odt) 10 mg DAILY 05/16/20 09:00 06/15/20 08:59 05/16/20 09:56 Folic Acid (Folic Acid) 1 mg DAILY 05/16/20 09:00 06/15/20 08:59 05/16/20 09:56 Morphine Sulfate (Morphine Sulfate) 2 mg Q4H PRN PAIN 4 - 6 05/15/20 19:00 06/14/20 18:59 Ondansetron HCl (Zofran) 4 mg Q4H PRN NAUSEA / VOMITING 05/15/20 19:00 06/14/20 18:59 Quetiapine Fumarate (Seroquel) 25 mg BID 05/16/20 09:00 06/15/20 08:59 05/16/20 09:56 Sodium Chloride 1,000 ml @ 150 mls/hr Q8H 05/15/20 19:30 06/14/20 19:29 05/16/20 01:39 Tramadol HCl (Ultram) 25 mg Q6HR 05/16/20 12:00 06/15/20 11:59 Trazodone HCl (Desyrel) 50 mg HS 05/16/20 21:00 06/15/20 20:59 Zinc Sulfate (Zinc Sulfate) 220 mg DAILY 05/16/20 09:00 06/15/20 08:59 05/16/20 09:56 LEVEL 1 SEPSIS INFECTION CRITE: None/Not assessed LEVEL 2-SIRS (LIST ALL THAT AP: None/Not assessed Cardiovascular Evidence: Not Assessed or None Hematologic Evidence: None/Not assessed Hepatic Evidence: None/Not assessed Metabolic Evidence: None/Not assessed Neurological Evidence: None/Not assessed Respiratory Evidence: Need for O2 to keep>90% Renal Evidence: None/Not assessed O2 Sat by Pulse Oximetry: 92 Oxygen Flow Rate: 2.00 Findings Patient has no oxygen requirement Gagner COVID 19+ the diagnosis she is in no respiratory distress and is stable for discharge to the alf with Dr. Rodríguez consulted and recommending against surgical intervention of her right subcapital femur fracture at this time Plan Problems: (1) COVID-19 virus detected Status: Acute ICD Code: U07.1 - COVID-19 SNOMED: 109578234, [id number] (2) Hip fracture Status: Acute ICD Code: S72.009A - Fracture of unspecified part of neck of unspecified femur, initial encounter for closed fracture SNOMED: 247567268 Assessment Assessment: 85-year-old female with a past medical history of advanced severe dementia and Parkinson's disease presents from the alf after a fall and it was discovered that she had a right subcapital hip fracture. She was also tested at the alf several days ago on the for COVID-19 and was positive she she has not been significantly hypoxic and chest x-ray has not revealed an acute pneumonia. Dr. Little was consulted and reviewed the images he will discuss options for treatment with family. Patient had previously been ambulatory to some extent at the alf Xrays show valgus impacted right subcapital hip fx In light of all her other medical problems I would advocate conservative treatment I spoke with her son who has medicalPOA and he is in agreement Will have nursing staff mobilize her as much as possible Can probably return to [place] in a day or two JOSE ROLON MD May 16, 2020 15:10
[2020-05-16 17:05] VITALS: BP 121/57
--- NOTE | 2020-05-16 17:05 | NUR ---
REPORT REPORT CALLED IN TO [facility]. SPOKE WITH MAMI STANFORD
[2020-05-16] MEDS ORDERED: DESYREL PO SCH (21:00)
== END 2020-05-16 17:10 | DRG 536 ==
LOC: EDBD 17:46 → ER 17:46 → MS 18:25
PROVIDERS: ADMIT Family Medicine; ATTEND Family Medicine
DX: S72.011A Unspecified intracapsular fracture of right femur, initial encounter for closed fracture (principal); U07.1 COVID-19; F02.81 Dementia in other diseases classified elsewhere, unspecified severity, with behavioral disturbance; I50.9 Heart failure, unspecified; G20 Parkinson's disease; W18.30XA Fall on same level, unspecified, initial encounter; Y93.89 Activity, other specified; Y92.128 Other place in nursing home as the place of occurrence of the external cause; Y99.8 Other external cause status; Z90.49 Acquired absence of other specified parts of digestive tract; Z90.10 Acquired absence of unspecified breast and nipple; Z82.5 Family history of asthma and other chronic lower respiratory diseases
CPT/HCPCS: 36415; 71045; 73502; 80053; 82550; 82553; 83880; 84484; 85025; 85610; 85730; 86677; 93005; 99285; G0378; J2405; J7030

== ENCOUNTER 2020-05-20 01:19 | Emergency (ER) | payer MEDICARE, MEDICAID ==
[~2020-05-20] VITALS: Ht 162.6 cm; Wt 43.1 kg
[~2020-05-20 01:19] MED LIST changes: +ACET500T73 PO; +ASCO500C9 PO; +BUSP10TA PO; +CARB1TAB20 PO; +CITA20TA6 PO; +DONE10TA7 PO; +FOLI0.8C PO; -MORPHINE SULFATE IV STA; +QUET25TA5 PO; +TRAM50TA PO; +ZINC220T3 PO; -ZOFRAN IV STA
[2020-05-20 02:13] LABS: BASOPHIL % 0.3 % (0.0-0.2); LYMPHOCYTES # 0.45 10^3/uL1 (1.0-4.8); LYMPHOCYTES % 12.2 % (24.0-44.0); MEAN CORP HGB 32.4 pg (26-34); MONOCYTES # 0.2 10^3/uL (0.3-0.8); MONOCYTES % 4.1 % (5.0-12.0); NEUTROPHIL # 3.1 10^3/uL (1.8-7.7); NEUTROPHILS % 83.1 % (41.0-85.0); PLATELET COUNT 154 10^3/uL (150-400); RED CELL DISTRIBUTION WIDTH 12.8 % (11.5-14.5)
--- NOTE | 2020-05-20 02:16 | ER.PDOC ---
General Chief Complaint: Requesting Medical Care Stated Complaint: DYSPNEA Time seen by MD: 01:25 Source: EMS, correction records Exam Limitations: physical impairment History of Present Illness Initial Comments covid positive last week NH reports increased SOB and low BP Timing/Duration: increasing Severity: moderate Activities at Onset: none Modifying Factors: improves with lying down, improves with oxygen Prior symptoms/Treatment: Similar symptoms previous, Recenly Seen, Recently Hospitalized Allergies: Coded Allergies: No Known Allergies (Unverified , 02/08/18) Home Meds Active Scripts Acetaminophen (ACETAMINOPHEN) 500 Mg Tablet, 500 MG PO Q6HR, #30 TAB prn Prov:JOSE ROLON MD 05/16/20 Acetaminophen (ACETAMINOPHEN) 500 Mg Tablet, 1 MG PO AM for 30 Days, TAB Prov:JOSE ROLON MD 05/16/20 Ascorbic Acid (Vitamin C) 500 Mg Capsule, 1 CAP PO BID for 28 Days, #28 CAP 0 Refills Prov:JOSE ROLON MD 05/16/20 Trazodone Hcl (TRAZODONE HCL) 50 Mg Tablet, 50 MG PO HS for 30 Days, TABLET Prov:BRONWYN HARDY IV, MD 04/03/18 Reported Medications Trazodone Hcl (TRAZODONE HCL) 50 Mg Tablet, 1 TAB PO HS, #30 TAB 1 Refill 05/16/20 Carbidopa/Levodopa (CARBIDOPA-LEVODOPA 10-100 TAB) 1 Each Tablet, 1 TAB PO TID for 30 Days, #90 TAB 0 Refills 05/16/20 Donepezil Hcl (DONEPEZIL HCL) 10 Mg Tablet, 2 TAB PO DAILY, #90 TAB 1 Refill 05/16/20 Folic Acid (Folic Acid) 0.8 Mg Capsule, 0.8 MG PO DAILY24, CAPSULE 05/16/20 Citalopram Hydrobromide (CITALOPRAM HBR) 20 Mg Tablet, 1 TAB PO DAILY, #30 TAB 5 Refills 05/16/20 Buspirone Hcl (BUSPIRONE HCL) 10 Mg Tablet, 1 TAB PO BID for anxiety, #60 TAB 1 Refill 05/16/20 Tramadol Hcl (TRAMADOL HCL) 50 Mg Tablet, 25 MG PO Q6HR for pain, TABLET 05/16/20 Quetiapine Fumarate (SEROQUEL) 25 Mg Tablet, 25 MG PO BID, TAB 05/16/20 Zinc Sulfate (ZINC SULFATE) 220 Mg Tablet, 220 MG PO OT, TAB 05/16/20 Discontinued Scripts Citalopram Hydrobromide (CELEXA) 10 Mg Tablet, 15 MG PO DAILY for 30 Days, TA BLET Prov:BRONWYN HARDY IV, MD 04/03/18 Risperidone (RISPERDAL) 1 Mg Tablet, 1 MG PO BID for 30 Days, TABLET Prov:BRONWYN HARDY IV, MD 02/24/18 Folic Acid (FOLIC ACID) 1 Mg Tablet, 1 MG PO DAILY for 30 Days, #30 TABLET Prov:RIANA JEFFERY MD 02/20/18 Past Medical History Medical History: CVA/TIA/stroke, congestive heart failure, parkinson Surgical History: cholecystectomy, mastectomy Family History Significant Family History: no pertinent family hx Social History Smoking: non-smoker Alcohol Use: none Drug Use: none Review of Systems Constitutional: see HPI EENTM: see HPI Respiratory: cough, shortness of breath, wheezing Cardiovascular: denies no symptoms reported, denies see HPI, denies chest pain, denies edema, denies palpitations, denies syncope, denies other Gastrointestinal: denies no symptoms reported, denies see HPI, denies abdominal pain, denies constipation, denies diarrhea, denies nausea, denies vomiting, denies other Genitourinary: denies no symptoms reported, denies see HPI, denies discharge, denies dysuria, denies frequency, denies hematuria, denies pain, denies other Musculoskeletal: denies no symptoms reported, denies see HPI, denies back pain, denies gout, denies joint pain, denies joint swelling, denies muscle pain, denies muscle stiffness, denies neck pain, denies other Skin: denies no symptoms reported, denies see HPI, denies change in color, denies change in hair/nails, denies dryness, denies lesions, denies lumps, denies rash, denies other Psychiatric/Neurological: denies no symptoms reported, denies see HPI, denies anxiety, denies depressed, denies emotional problems, denies headache, denies numbness, denies paresthesia, denies pre-existing deficit, denies seizure, denies tingling, denies tremors, denies weakness, denies other Endocrine: denies no symptoms reported, denies see HPI, denies excessive sweating, denies flushing, denies intolerance to cold, denies intolerance to heat, denies increased hunger, denies increased thrist, denies increased urine, denies unexplained weight gain, denies unexplaned weight loss, denies other Hematologic/Lymphatic: denies no symptoms reported, denies see HPI, denies anemia, denies blood clots, denies easy bleeding, denies easy bruising, denies swollen glands, denies other All Other Systems: Reviewed and Negative Results/Orders Results/Orders Orders - JEANNETTE PEOPLES Cbc With Auto Diff (05/20/20 01:36) Comprehensive Metabolic Panel (05/20/20 01:36) Blood Culture (05/20/20 01:36) Xr Chest 1v (05/20/20 01:36) Saline Lock (05/20/20 01:36) Place Martinez Catheter (05/20/20 01:36) Urinalysis (05/20/20 01:36) Discharge (05/20/20 03:21) Vital Signs Date Time Temp Pulse Resp B/P (MAP) Pulse Ox O2 Delivery O2 Flow Rate FiO2 05/20/20 03:29 98.9 54 16 97/53 (68) 97 Nasal [place] 4.00 05/20/20 02:26 98.9 59 16 05/20/20 02:26 98.9 59 16 88 05/20/20 02:26 98.9 59 16 117/50 (72) 96 Nasal Can[place] 4.00 05/20/20 01:20 96 Nasal Canula 4.00 05/20/20 01:19 98.9 59 16 88 Room Air Laboratory Tests Test 05/20/20 01:45 05/20/20 01:56 Sodium Level 137 mmol/L (132-145) Potassium Level 3.1 mmol/L (3.6-5.2) L Chloride Level 100.0 mmol/L (96-109) Carbon Dioxide Level 29.2 mmol/L (20.0-32) Anion Gap 10.9 Blood Urea Nitrogen 14 mg/dL (7-18) Creatinine 0.70 mg/dL (0.59-1.40) Estimated GFR () 96.0 (>/=60) Est GFR (CKD-EPI)(Non-Afr Syrian) 79.3 (>/=60) BUN/Creatinine Ratio 20.0 Glucose Level 114 mg/dL (70-110) H Calcium Level 7.4 mg/dL (8.4-10.5) L Total Bilirubin 0.5 mg/dL (0.2-1.0) Aspartate Amino Transferase (AST) 24 U/L (0-35) Alanine Aminotransferase (ALT) 14 U/L (12-78) Alkaline Phosphatase 49 U/L (50-136) L Total Protein 5.7 g/dL (6.4-8.2) L Albumin 2.4 g/dL (3.4-5.0) L Globulin 3.3 White Blood Count 3.7 10^3/uL (4.5-11.0) L Red Blood Count 3.74 10^6/uL (4.00-5.20) L Hemoglobin 12.1 g/dL (12.0-15.0) Hematocrit 35.6 % (36.0-46.0) L Mean Corpuscular Volume 95.2 fL (78-100) Mean Corpuscular Hemoglobin 32.4 pg (26-34) Mean Corpuscular Hemoglobin Concent 34.0 g/dL (33-36.5) Red Cell Distribution Width 12.8 % (11.5-14.5) Platelet Count 154 10^3/uL (150-400) Mean Platelet Volume 10.1 fL (7.8-11.0) Neutrophils (%) (Auto) 83.1 % (41.0-85.0) Lymphocytes (%) (Auto) 12.2 % (24.0-44.0) L Monocytes (%) (Auto) 4.1 % (5.0-12.0) L Neutrophils # (Auto) 3.1 10^3/uL (1.8-7.7) Lymphocytes # (Auto) 0.45 10^3/uL1 (1.0-4.8) L Monocytes # (Auto) 0.2 10^3/uL (0.3-0.8) L Absolute Immature Granulocyte (auto 0.01 10^3 u/L (0-2) Absolute Eosinophils (auto) 0.0 10^3/uL (0.0-0.2) Immature Granulocytes % 0.30 % (0.00-0.50) Eosinophils % 0.0 % (0.0-5.0) Basophils % 0.3 % (0.0-0.2) H Basophils # 0.0 10^3/uL (0.0-0.1) Progress Progress discussed pts condition with her son Alonso he states that his mom signed DNR papers long ago and she and he only want supportive care Departure Time of Disposition: 03:18 Disposition: 63 DISC/XFER TO PENITENTIARY CARE Impression: Primary Impression: Pneumonia Additional Impressions: COVID-19 virus detected Dementia with behavioral disturbance Condition: Critical Referrals: WILBER GRAVES (PCP) PRIMARY CARE PROVIDER Duration or Time Spent with Pa: 45 Problem Qualifiers JEANNETTE PEOPLES May 20, 2020 02:16
[2020-05-20 02:26] VITALS: BP 117/50
[2020-05-20 02:32] LABS: CALCIUM 7.4 mg/dL (8.4-10.5); CARBON DIOXIDE 29.2 mmol/L (20.0-32)
--- NOTE | 2020-05-20 02:44 | DIREP ---
PROCEDURE:CHEST 1 VIEW COMPARISON:[facility], CR, XRAY CHEST SINGLE VW, 05/15/2020, 06:46 PM. [facility], CR, XRAY CHEST SINGLE VW, 03/27/2018, 07:07 PM. INDICATIONS:sob FINDINGS: LUNGS/PLEURA:Patient is significantly rotated to the right. Worsened aeration of the right matt thorax with patchy peripheral infiltrates. Small right pleural effusion. No pneumothorax. VASCULATURE:Unremarkable pulmonary vasculature. Calcified aortic arch. CARDIAC:Normal. No cardiac silhouette abnormality or cardiomegaly. MEDIASTINUM:Normal. No visible mass or adenopathy. BONES:Degenerative change without evidence of acute osseus abnormality. OTHER:EKG leads overlie the chest. CONCLUSION: 1. Worsened aeration of the right matt thorax with patchy peripheral infiltrates. Findings concerning for multifocal pneumonia. Dictated by: Terrance Burris MD on 05/20/2020 at 02:42 AM
[2020-05-20 03:29] VITALS: BP 97/53
== END 2020-05-20 03:45 ==
LOC: ER 01:19 → EDBD 01:19 → ER 03:45
DX: J18.9 Pneumonia, unspecified organism (principal); F03.91 Unspecified dementia, unspecified severity, with behavioral disturbance; I95.9 Hypotension, unspecified; I50.9 Heart failure, unspecified; Z20.828 Contact with and (suspected) exposure to other viral communicable diseases; Z79.899 Other long term (current) drug therapy; Z86.73 Personal history of transient ischemic attack (TIA), and cerebral infarction without residual deficits; Z90.49 Acquired absence of other specified parts of digestive tract
CPT/HCPCS: 36415; 71045; 80053; 85025; 87040; 99283